=== PATIENT | male | born 1955 | race Native Hawaiian/Other Pacific Islander ===

== ENCOUNTER 2021-10-23 07:42 | Outpatient (REF) | payer OTHER, SELFPAY ==
[2021-10-23 08:10] LABS: MANUAL DIFF FLAG NO
[2021-10-23 08:39] LABS: Basophils Percent Auto 0.5 % (0-2); Eosinophils Absolute Auto 0.4 X10*3/uL (0.0-0.4); Eosinophils Percent Auto 5.2 % (0-4); Hematocrit 44.4 % (42.0-52.0); Hemoglobin 15.1 g/dl (14.0-18.0); Imm Gran Abs Auto 0.02 X10*3/uL (0.00-0.03); Imm Gran Pct Auto 0.3 % (0.0-0.4); Lymphocytes Absolute Auto 2.5 X10*3/uL (1.2-4.9); Lymphocytes Percent Auto 33.7 % (20-40); Mean Corpuscular Hemoglobin 32.7 pg (27.0-33.0); Mean Corpuscular Volume 96.1 fL (80.0-98.0); Mean Platelet Volume 10.5 fL (9.4-12.4); Monocytes Absolute Auto 0.6 X10*3/uL (0.1-1.2); Monocytes Percent Auto 8.3 % (2-11); Neutrophils Absolute Auto 3.9 x10*3/uL (2.0-8.3); Platelet Count 158 X10*3/uL (160-400); Red Blood Count 4.62 X10*6/uL (4.60-5.80); Red Cell Distribution Width 12.4 % (11.0-16.0); White Blood Count 7.5 X10*3/uL (4.8-10.8)
[2021-10-23 09:05] LABS: Alanine Aminotransferase 22 U/L (0-40); Alkaline Phosphatase 67 U/L (39-117); Anion Gap 12 (12-20); Aspartate Amino Transferase 28 U/L (5-37); Bilirubin Total 1.1 mg/dL (0.0-1.0); Blood Urea Nitrogen 13 mg/dL (9-16); Calcium 9.5 mg/dL (8.4-10.2); Carbon Dioxide 28 mmol/L (22-29); Chloride 104 mmol/L (96-108); Cholesterol 128 mg/dL; Estimated Glomerular Filt Rate > 60; Glucose Fasting 104 mg/dL (60-99); HDL Cholesterol 49 mg/dL; LDL Cholesterol Calculated 69 mg/dl; Potassium 4.4 mmol/L (3.3-5.1); Sodium 140 mmol/L (135-145); Triglycerides 54 mg/dL
== END 2021-10-23 07:43 | disposition home or self-care (01) ==
LOC: HO.LAB 07:42
PROVIDERS: PCP Internal Medicine; Visit Provider Internal Medicine
DX: I10 Essential (primary) hypertension (principal); E78.00 Pure hypercholesterolemia, unspecified; I25.10 Atherosclerotic heart disease of native coronary artery without angina pectoris; Z79.899 Other long term (current) drug therapy; Z95.5 Presence of coronary angioplasty implant and graft
CPT/HCPCS: 36415; 80053; 80061; 85025; 93005

== ENCOUNTER → 2022-01-22 08:13 | Outpatient (REF) | payer OTHER, SELFPAY ==
--- NOTE | 2022-01-22 08:18 | CA_ITS ---
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 Study Quality: Good ECG Rhythm: Bradycardia Conclusions: - 1. Normal LV systolic and diastolic function with possible basal inferior wall motion abnormality 2. Moderately dilated ascending aorta at 4.5 cm 3. Hedp-ty-bkvbxcen aortic regurgitation 4. Normal RV systolic pressure 5. No gross pericardial effusion Findings Left Ventricle Normal left ventricular size, thickness, and systolic function. The visually estimated ejection fraction is between 55-60%. Spectral Doppler is indicative of a normal filling pattern. Peak GLS is -18.2%, within normal limits Wall Motion Rest Echo Findings The basal inferior segment is hypokinetic. All other scored wall segments showed normal motion. Right Ventricle Normal right ventricular cavity size and systolic function. Atria The left atrium is likely dilated. There is no evidence of interatrial shunt. The right atrium is normal in size. Aortic Valve There is mild calcification of the aortic valve. There is mild thickening of the aortic valve. There is no aortic valve stenosis. There is mild to moderate aortic valve regurgitation. Mitral Valve Normal mitral valve structure and function. There is mild mitral valve regurgitation. There is no mitral valve stenosis. Pulmonic Valve The pulmonic valve is likely normal. There is trace to mild pulmonic valve regurgitation. Tricuspid Valve There is mild tricuspid valve regurgitation. The right ventricular systolic pressure is normal. The right ventricular systolic pressure is 22 mmHg. Normal right atrial pressure. There is no evidence of pulmonary hypertension. Great Vessels The pulmonary artery was not well visualized. There is moderate dilatation of the ascending aorta measuring 4.50 cm. Venous The inferior vena cava is normal in size and collapses greater than 50% with inspiration. Pericardium/Pleural There is no evidence of pericardial effusion. Prior Study Comparison No prior study available for comparison. Measurements 2D Linear Measurements IVSd: 1.07 0.6-0.9/0.6-1.0 cm LVIDd: 5.24 3.9-5.3/4.2-5.9 cm LVIDd Index: 2.86 2.4-3.2/2.2-3.1 cm/m2 LVIDs: 4.00 2.0-3.6 cm LVPWd: 0.83 0.7-1.1 cm Ao Root: 3.60 2.1-3.5 cm LA Diam: 4.10 2.7-3.8/3.0-4.0 cm LAIDs Index: 2.24 1.5-2.3 cm/m2 LV Mass: 228.92 67-162/88-224 g LV Mass Index: 125.09 43-95/49-115 g/m2 LVOT Diam: 2.40 3.0+(-)1.3 cm 2D Systolic Function EF 4C: 43.50 >55% EF 2C: 58.90 >55% Mitral Valve MV Pk E: 0.75 MV PK A: 0.50 MV Decel Time: 142.00 E/A: 1.50 E'Lateral: 11.10 E'Medial: 5.55 E/E' Med: 13.50 E/E' Lat: 6.70 PHT: 42.00 MVA PHT: 5.24 Decel [place]: 5.26 Aortic Valve AoV Pk Wero: 1.61 AoV Mn Wero: 1.07 AoV VTI: 0.33 AoV Pk Grad: 10.00 Aov Mn Grad: 5.00 CON Cont.VTI: 3.23 AI Pk Wero: 4.37 AI [place]: 2.03 LVOT LVOT Pk Wero: 1.02 LVOT Mn Wero: 0.72 LVOT VTI: 0.24 LVOT Pk Grad: 4.00 LVOT Mn Grad: 2.00 LVOT Diam: 2.40 LVOT Area: 4.52 Diastolic Function MV Pk E: 0.75 MV Pk A: 0.50 E/A: 1.50 E'Medial: 5.55 E/E' Med: 13.50 E' Laterial: 11.10 E/E' Lat: 6.70 Right Ventricle TAPSE (mm): 16.60 TVS' Wero: 10.20 Tricuspid Valve TR Pk Wero: 2.19 TR Pk Grad: 19.00 RA Press: 3.00 RVSP: 22.00 Great Vessels Aorta Ao Root-2D: 3.60 2.0-3.7 cm Sinus of Valsalva: 3.60 2.0-3.5 cm Ao Asc: 4.50 2.1-3.4 cm Ao Arch: 2.70 Pulmonary Valve PV Pk Wero: 0.81 Peak PV Grad: 3.00 Updated in Other Vendor System with Status of Final Harman Cole MD electronically signed on 01/23/2022 8:37:50 AM with status of Final
== END ==
LOC: HO.CARD 08:13
PROVIDERS: PCP Internal Medicine; Visit Provider Internal Medicine
DX: I25.10 Atherosclerotic heart disease of native coronary artery without angina pectoris (principal)
CPT/HCPCS: 93306; 93356

== ENCOUNTER → 2022-03-05 10:47 | Outpatient (REF) | payer OTHER, SELFPAY ==
[2022-03-05 11:51] LABS: HIV AB/AG Nonreactive (Nonreactive); HIV Num 1 0.08 S/CO (0.00-0.99)
[2022-03-05 11:53] LABS: Syphilis Screen Nonreactive (Nonreactive)
[2022-03-05 12:57] LABS: Prostate Specific Antigen 4.64 ng/mL (<0.05-4.0)
== END ==
LOC: HO.CARD 10:47
PROVIDERS: Absent Provider Internal Medicine; PCP Internal Medicine; Visit Provider Internal Medicine
DX: Z12.5 Encounter for screening for malignant neoplasm of prostate (principal); Z11.4 Encounter for screening for human immunodeficiency virus [HIV]; N40.0 Benign prostatic hyperplasia without lower urinary tract symptoms; I11.0 Hypertensive heart disease with heart failure; I25.10 Atherosclerotic heart disease of native coronary artery without angina pectoris
CPT/HCPCS: 36415; 84153; 86780; 87389

== ENCOUNTER 2022-04-09 08:43 | Outpatient (REF) | payer OTHER, SELFPAY ==
[2022-04-09 10:20] LABS: Prostate Specific Antigen 4.59 ng/mL (<0.05-4.0)
== END 2022-04-09 08:44 | disposition home or self-care (01) ==
LOC: HO.LAB 08:43
PROVIDERS: PCP Internal Medicine; Visit Provider Internal Medicine
DX: Z12.5 Encounter for screening for malignant neoplasm of prostate (principal); R97.20 Elevated prostate specific antigen [PSA]
CPT/HCPCS: 36415; 84153

== ENCOUNTER → 2022-04-30 08:06 | Outpatient (REF) | payer OTHER, SELFPAY ==
--- NOTE | ~2022-04-30 | NM_ITS ---
EXERCISE MYOCARDIAL PERFUSION STUDY INDICATION: Coronary artery disease, assess for ischemia TECHNIQUE: The patient was brought in for an exercise perfusion study on 04/30/2022. Patient performed exercise as per Paul protocol and was injected 25 mCi of sestamibi once target heart rate was achieved. Images were obtained using the SPECT gamma camera interlaced with the gating device. Images were obtained in supine position. Resting perfusion study was performed on 05/07/2022. Patient was administered 25 mCi of sestamibi intravenously at rest. Images were then obtained in supine position. Total DLP 63mg/dl. Images were processed with the software and compared side to side in short axis, horizontal long axis and vertical long axis views. FINDINGS: Raw images were reviewed. The stress perfusion study showed diminished tracer uptake in the basal part of inferior/inferolateral wall; no significant change with CT attenuation correction. The gated study shows mildly diminished LV systolic function with calculated LVEF of 46%. LV cavity is normal in size. The gated study shows diminished contractility in the basal part of inferior/inferolateral/lateral wall. Resting study shows improved uptake in the basal inferior wall compared to stress acquisition. Gating at rest reveals ejection fraction 55%. There is contractility in the basal part of inferior/inferolateral/lateral wall. The findings are consistent with reversible/fixed perfusion defect in the basal part of inferior/inferolateral/adjacent lateral wall. NM/NM cardiolite stress test IMPRESSION: 1. Myocardial perfusion imaging study shows mixed ischemia/infarct pattern in the basal inferior/adjacent inferolateral/lateral wall. 2. Gated LVEF is 48% during stress and 55% during rest. Correlate with echocardiogram. 3. Transient ischemic dilatation not present. EKG component of the test reported separately.
--- NOTE | 2022-04-30 08:10 | CA_ITS ---
Acquisition Time: 2022-04-30 08:13:58 Total Exercise Time: 00:07:30 Test Indications: CAD, AK STENT Medications: SEE CHART Protocol: ALICIA Max HR: 164 BPM 105% of Pred: 156 BPM Max BP: 164/080 mmHG Max Work Load: 9.3 METS Exercise stress test with exercise 7 min 30 sec of Alicia protocol, achieving 105% MPHR, 9 METs, with mild sob, no chest discomfort, with isolated PACs and PVCs, with normotensive response to exercise, with Baseline EKG shgowing ST/T wave abnormality in lateral leads which does not change significantly with exercise, overall nondiagnostic to determine ischemia. Treadmill was stopped due to max heart rate acheived. Nuclear images pending. Test reviewed with Dr Eli. Referred By: Ashish Montero Overread By: JUAN LI
== END ==
LOC: HO.CARD 08:06
PROVIDERS: PCP Internal Medicine; Visit Provider Internal Medicine
DX: I25.10 Atherosclerotic heart disease of native coronary artery without angina pectoris (principal)
CPT/HCPCS: 78452; 93017; A9500

== ENCOUNTER → 2022-12-31 13:24 | Outpatient (BNVA) | payer OTHER, SELFPAY | PROVIDERS: PCP Internal Medicine; Referring Provider Internal Medicine; Visit Provider Internal Medicine | DX: I25.10 Atherosclerotic heart disease of native coronary artery without angina pectoris (principal); I10 Essential (primary) hypertension | CPT/HCPCS: 93005 ==

== ENCOUNTER → 2023-02-20 07:44 | Outpatient (REF) | payer OTHER, SELFPAY | LOC: HO.CARD 07:44 | PROVIDERS: PCP Internal Medicine; Visit Provider Internal Medicine | DX: I77.810 Thoracic aortic ectasia (principal) | CPT/HCPCS: 93306 ==

== ENCOUNTER 2023-06-01 13:33 | Outpatient (REF) | payer OTHER, SELFPAY ==
[2023-06-01 14:32] LABS: Anion Gap 15 (12-20); Blood Urea Nitrogen 16 mg/dL (9-16); Calcium 9.6 mg/dL (8.4-10.2); Carbon Dioxide 26 mmol/L (22-29); Chloride 103 mmol/L (96-108); Estimated Glomerular Filt Rate > 60; Glucose Random 101 mg/dL (60-115); Potassium 4.9 mmol/L (3.3-5.1); Sodium 139 mmol/L (135-145)
== END 2023-06-01 13:34 | disposition home or self-care (01) ==
LOC: HO.LAB 13:33
PROVIDERS: PCP Internal Medicine; Visit Provider Internal Medicine
DX: I77.810 Thoracic aortic ectasia (principal)
CPT/HCPCS: 36415; 80048

== ENCOUNTER 2023-06-03 07:39 | Outpatient (REF) | payer OTHER, SELFPAY ==
--- NOTE | ~2023-06-03 | CT_ITS ---
EXAMINATION: CTA OF THE CHEST WITHOUT AND WITH CONTRAST CLINICAL INFORMATION: Thoracic aortic ectasia. COMPARISON: None TECHNIQUE: CT angiography of the chest was performed without and with contrast. 70 mL Omnipaque 350 administered intravenously without complication. 3D POSTPROCESSING: Multiple 3-D angiographic images were processed from the initial data set by the [facility] on an independent workstation under concurrent physician supervision. DOSE LOWERING TECHNIQUES: This CT examination was performed using dose optimization techniques as appropriate, variously including the following: - Automated exposure control - Adjustment of mA and/or kV according to patient size (this includes techniques or standardized protocols for targeted exams where dose is matched to indication/reason for exam; i.e. extremities or head) - Use of iterative construction technique DOSE-LENGTH PRODUCT: 137.16 mGy-cm FINDINGS: CORONARY ARTERIES: LM, LAD, diagonal, LCx, RCA calcium. ASCENDING AORTA: The aortic sinuses measure 4.5 x 4.2 cm. The sinotubular junction measures 3.9 x 3.4 cm. The mid segment measures 4.5 x 4.5 cm. The distal segment measures 3.7 x 3.6 cm. AORTIC ARCH: The mid aortic arch measures 2.9 x 2.6 cm. Three-vessel arch anatomy. Mild atherosclerosis. DESCENDING AORTA: The proximal segment measures 3.0 x 2.8 cm. The distal segment measures 2.6 x 2.3 cm. INCLUDED UPPER ABDOMINAL AORTA: The upper abdominal aorta measures 2.5 x 2.3 cm. The included celiac and superior mesenteric artery origins appear patent. PULMONARY ARTERIES: The exam was performed in the systemic arterial phase and not timed to evaluate the pulmonary arteries. NONVASCULAR: Arterial phase imaging limits evaluation of nonvascular structures. LUNG: Biapical pleural parenchymal scarring. Peribronchial thickening consistent with airways disease. Groundglass nodule in the anterior right upper lobe best appreciated on sagittal imaging measures 2.2 x 1.7 x 1.8 cm. On axial imaging this has a more wedge-shaped appearance and it may represent scarring and frictional change related to overlying sternocostal spurring. PLEURA: No pleural effusion or pneumothorax. MEDIASTINUM: No adenopathy. No pericardial effusion. CHEST WALL/AXILLA: No axillary or internal mammary lymphadenopathy. OSSEOUS STRUCTURES: Degenerative changes in the spine. UPPER ABDOMEN: Unremarkable. CT/CT angio chest aorta IMPRESSION: Ascending aortic aneurysm measuring 4.5 cm. Significant coronary artery calcium. Groundglass nodule in the anterior right upper lobe best appreciated on sagittal imaging measures 2.2 x 1.7 x 1.8 cm. On axial imaging this has a more wedge-shaped appearance and it may represent scarring and frictional change related to overlying sternocostal spurring. Per Fleischner Society Guidelines recommend a non-contrast Chest CT at 6 months to confirm persistence, then additional non-contrast Chest CTs every 2 years until 5 years. Fleischner guidelines were followed.
== END 2023-06-03 07:40 | disposition home or self-care (01) ==
LOC: HO.CT 07:39
PROVIDERS: PCP Internal Medicine; Visit Provider Internal Medicine
DX: I77.810 Thoracic aortic ectasia (principal)
CPT/HCPCS: 71275; Q9967

== ENCOUNTER 2023-11-16 08:40 | Outpatient (REF) | payer OTHER, SELFPAY ==
[2023-11-16 08:53] LABS: MANUAL DIFF FLAG NO
[2023-11-16 09:21] LABS: Basophils Absolute Auto 0.1 X10*3/uL (0.0-0.2); Basophils Percent Auto 0.9 % (0-2); Eosinophils Absolute Auto 0.3 X10*3/uL (0.0-0.4); Eosinophils Percent Auto 5.3 % (0-4); Hematocrit 43.6 % (42.0-52.0); Hemoglobin 14.7 g/dl (14.0-18.0); Imm Gran Abs Auto 0.02 X10*3/uL (0.00-0.03); Imm Gran Pct Auto 0.4 % (0.0-0.4); Lymphocytes Absolute Auto 2.6 X10*3/uL (1.2-4.9); Lymphocytes Percent Auto 47.1 % (20-40); Mean Corpuscular HGB Conc 33.7 g/dl (31.0-36.0); Mean Corpuscular Hemoglobin 31.6 pg (27.0-33.0); Mean Corpuscular Volume 93.8 fL (80.0-98.0); Mean Platelet Volume 10.8 fL (9.4-12.4); Monocytes Absolute Auto 0.5 X10*3/uL (0.1-1.2); Monocytes Percent Auto 9.4 % (2-11); Neutrophils Absolute Auto 2.1 x10*3/uL (2.0-8.3); Neutrophils Percent Auto 36.9 % (45-73); Platelet Count 147 X10*3/uL (160-400); Red Blood Count 4.65 X10*6/uL (4.60-5.80); Red Cell Distribution Width 12.8 % (11.0-16.0); White Blood Count 5.6 X10*3/uL (4.8-10.8)
[2023-11-16 09:57] LABS: Alanine Aminotransferase 27 U/L (0-40); Albumin Level 3.9 g/dL (3.5-5.0); Alkaline Phosphatase 88 U/L (39-117); Anion Gap 10 (12-20); Aspartate Amino Transferase 25 U/L (5-37); Bilirubin Total 0.6 mg/dL (0.0-1.0); Blood Urea Nitrogen 14 mg/dL (9-16); Calcium 9.2 mg/dL (8.4-10.2); Carbon Dioxide 28 mmol/L (22-29); Chloride 105 mmol/L (96-108); Cholesterol 128 mg/dL (<200); Estimated Glomerular Filt Rate > 60; Glucose Fasting 108 mg/dL (60-99); HDL Cholesterol 55 mg/dL (>40); LDL Cholesterol Calculated 64 mg/dL (<100); Potassium 4.1 mmol/L (3.3-5.1); Sodium 139 mmol/L (135-145); Total Protein 6.9 g/dL (6.5-8.0); Triglycerides 49 mg/dL (<150)
== END 2023-11-16 08:41 | disposition home or self-care (01) ==
LOC: HO.LAB 08:40
PROVIDERS: PCP Internal Medicine; Visit Provider Internal Medicine
DX: I25.10 Atherosclerotic heart disease of native coronary artery without angina pectoris (principal); I10 Essential (primary) hypertension; E78.00 Pure hypercholesterolemia, unspecified
CPT/HCPCS: 36415; 80053; 80061; 85025

== ENCOUNTER 2023-12-31 08:56 | Outpatient (AMB) | payer OTHER, SELFPAY ==
--- NOTE | 2023-12-31 09:05 | A.OFFVIS_ITS ---
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 To recall, while living in [place] many years ago he underwent PCI for acute myocardial infarction. Then moved to [place] and then to [place]. Overall, he is extremely active. 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 Still extremely active with no limitations whatsoever. On meds for hypertension and dyslipidemia. Since last seen, no new complaints. No angina or shortness of breath or in fact anything of that nature. [facility] [place] Medical History (Updated 06/11/22 @ 12:41 by Ashish Montero MD) Myocardial infarction Atherosclerotic cardiovascular disease Surgical History Stented coronary artery Family History Father No problems noted. Mother No problems noted. Social History Alcohol intake: never Patient Tobacco Use Status: Never used Tobacco Review of Systems Const Denies chills, Denies fatigue, Denies fever(s), Denies frequent falls, Denies weakness, Denies weight gain and Denies weight loss ENT Denies dizziness Card Denies chest pain, Denies leg edema, Denies lightheadedness, Denies palpitations, Denies dyspnea and Denies dyspnea on exertion Resp Denies cough, Denies dyspnea and Denies dyspnea on exertion GI Denies hematochezia Musc Denies abnormal gait, Denies muscle weakness, Denies numbness, Denies radiating pain into limb and Denies tingling Neuro Denies abnormal gait, Denies dizziness, Denies frequent falls, Denies numbness, Denies tingling and Denies weakness Endo Denies fatigue and Denies palpitations Physical Exam Vital Signs: Last Vital Signs Pulse 65 12/31/23 09:06 BP 120/68 12/31/23 09:06 BMI result Body Mass Index 22.6 Const General: comfortable and no acute distress Orientation/consciousness: patient oriented x3 HEENT Other: Unremarkable Head: Yes normal to inspection Neck Neck: Yes normal visual inspection Chest Chest palpation & inspection: normal inspection of the chest Resp Auscultation: clear to auscultation bilaterally Cardio Palpation: normal PMI Heart sounds: S1 normal heart sound present, S2 normal heart sound present, no gallops, no murmurs and no rubs GI Palpation (GI): Soft to palpation Back/Spine/Pelvis Other: unremarkable Skin General skin exam: no rashes or lesions noted Neuro General: patient oriented x3 Extrem General: Yes normal to inspection Psych Mental Status: mental status grossly normal Office Procedures EKG Details: EKG with sinus rhythm at 65/Min; CT prolongation to 212 millisecond; left ventricular hypertrophy with some repolarization changes. [id number], Complete Assessment & Plan Assessment & Plan (1) Atherosclerotic cardiovascular disease: Code(s): I25.10 - Atherosclerotic heart disease of [place] coronary artery without angina pectoris Category: Medical (2) Essential hypertension: Code(s): I10 - Essential (primary) hypertension Category: Medical (3) Ascending aorta dilatation: Code(s): I77.810 - Thoracic aortic ectasia Category: Medical Plan Cardiac catheterization -2009. s/p PCI to circumflex; right coronary artery; 1st diagonal branch. Widely patent left main. At that time, ventriculogram had akinesis of the proximal inferior wall. Overall, seems to be completely revascularized. Exercise stress echocardiogram from 2015 in [place]- unremarkable resting study; after exercise, slight hypokinesis in the basal lateral wall. Echocardiogram from January 2023 - LVEF of 55-60% with basal inferior hypokinesis. There was also finding of bagp-ko-vdioekwr aortic regurgitation. Ascending aortic size described at 4.5 cm. Myocardial perfusion imaging 2021- mixed ischemia/infarct pattern in the basal inferior/inferolateral/lateral wall. Chest CTA 2022-ascending aortic aneurysm, 4.5 cm. Overall, stable coronary disease with no symptoms. May remain on dual antiplatelet therapy. In the past, has had GI bleeding from [place] and had taken PPIs. Blood pressure is stable on losartan. Last LDL 64 mg/dL. Triglycerides 49 mg/dL. We will check an echocardiogram for ascending aortic size. Orders: Orders CA echo transthoracic complete Today I77.810 - Thoracic aortic ectasia Coding Level of Care Code Est Pt Level 4 (66840) Diagnoses Atherosclerotic cardiovascular disease I25.10 Essential hypertension I10 Ascending aorta dilatation I77.810 CPT Codes EKG - CPT: 96353-[id number], Complete ([id number])
[2023-12-31 09:06] VITALS: BP 120/68; PULSE 65; BMI 22.6
== END 2023-12-31 09:22 | disposition home or self-care (01) ==
PROVIDERS: PCP Internal Medicine; Visit Provider Internal Medicine
DX: I25.10 Atherosclerotic heart disease of native coronary artery without angina pectoris (principal); I10 Essential (primary) hypertension; I77.810 Thoracic aortic ectasia
CPT/HCPCS: 93010; 99214

== ENCOUNTER → 2023-12-31 08:56 | Outpatient (BNVA) | payer OTHER, SELFPAY | PROVIDERS: PCP Internal Medicine; Visit Provider Internal Medicine | DX: I25.10 Atherosclerotic heart disease of native coronary artery without angina pectoris (principal); I10 Essential (primary) hypertension; I77.810 Thoracic aortic ectasia; I25.2 Old myocardial infarction; Z95.5 Presence of coronary angioplasty implant and graft | CPT/HCPCS: 93005 ==

== ENCOUNTER → 2024-01-27 12:46 | Outpatient (REF) | payer OTHER, SELFPAY ==
--- NOTE | 2024-01-27 12:54 | CA_ITS ---
Transthoracic Echocardiogram Patient (Last, First, Middle): Jeovany Viera B Gender: Male Date of : 1955 Age: 68 Procedure Date: 01/27/2024 Procedure Type: Transthoracic Echocardiogram Location: OP Height: 177.8 cm Weight: 67.59 kg BSA: 1.84 m2 Heart Rate: bpm BP: 116 / 60 mmHg Assistant Director Of Public Works: Referring MD: Ashish Montero MD Field Agronomist: Harman Cole MD Symptoms: I77.810 - Thoracic aortic ectasia Study Quality: Adequate ECG Rhythm: Sinus Conclusions: - 1. Low normal LV ejection fraction of 50-55% with impaired relaxation filling pattern 2. Mildly dilated left atrium 3. Llhd-bh-jiysnvls aortic regurgitation and mild mitral regurgitation 4. Moderately dilated ascending aorta up to 4.6 cm 5. No pericardial effusion Findings Left Ventricle Normal left ventricular cavity size. There is mildly increased left ventricular wall thickness. The left ventricular systolic function is low normal. The visually estimated ejection fraction is between 50-55%. Spectral Doppler is indicative of an impaired relaxation filling pattern. E/E prime ratio is between 8 and 15 consistent with indeterminate filling pressures. Wall Motion Rest Echo Findings The basal inferior and basal inferoseptal segments are akinetic. All other scored wall segments showed normal motion. Right Ventricle Normal right ventricular cavity size and systolic function. Atria The left atrium is mildly dilated. There is no evidence of interatrial shunt. The right atrium is normal in size. Aortic Valve Normal aortic valve structure and function. There is no aortic valve stenosis. There is mild to moderate aortic valve regurgitation. Mitral Valve Normal mitral valve structure and function. There is mild mitral valve regurgitation. There is no mitral valve stenosis. Pulmonic Valve The pulmonic valve is likely normal. Tricuspid Valve Normal tricuspid valve structure. Tricuspid regurgitation envelope is inadequate for calculation of right ventricular systolic pressure. Normal right atrial pressure. Great Vessels The pulmonary artery was not well visualized. There is moderate dilatation of the ascending aorta measuring 4.60 cm. Venous The inferior vena cava is normal in size and collapses greater than 50% with inspiration. Pericardium/Pleural There is no evidence of pericardial effusion. Prior Study Comparison No significant change compared to prior study dated: 02/20/2023. Measurements 2D Linear Measurements IVSd: 1.23 0.6-0.9/0.6-1.0 cm LVIDd: 4.70 3.9-5.3/4.2-5.9 cm LVIDd Index: 2.55 2.4-3.2/2.2-3.1 cm/m2 LVIDs: 3.24 2.0-3.6 cm LVPWd: 1.21 0.7-1.1 cm Ao Root: 3.90 2.1-3.5 cm LA Diam: 3.80 2.7-3.8/3.0-4.0 cm LAIDs Index: 2.07 1.5-2.3 cm/m2 LV Mass: 270.58 67-162/88-224 g LV Mass Index: 147.05 43-95/49-115 g/m2 LVOT Diam: 2.10 3.0+(-)1.3 cm 2D Systolic Function EF 4C: 45.60 >55% EF 2C: 58.10 >55% EF BiP: 51.90 >55% Mitral Valve MV VTI: 0.31 MV Pk Wero: 0.82 MV Mn Wero: 0.43 MV Pk Grad: 3.00 MV Mn Grad: 1.00 MV Pk E: 0.71 MV PK A: 0.89 MV Decel Time: 208.00 E/A: 0.80 E'Lateral: 9.03 E'Medial: 4.90 E/E' Med: 14.50 E/E' Lat: 7.90 PHT: 61.00 MVA PHT: 3.61 MVA Continuity: 2.56 Decel [place]: 3.41 Aortic Valve AoV Pk Wero: 1.68 AoV Mn Wero: 1.05 AoV VTI: 0.38 AoV Pk Grad: 11.00 Aov Mn Grad: 6.00 CON Cont.VTI: 2.10 AI Pk Wero: 4.37 AI [place]: 1.95 LVOT LVOT Pk Wero: 0.88 LVOT Mn Wero: 0.54 LVOT VTI: 0.23 LVOT Pk Grad: 3.00 LVOT Mn Grad: 1.00 LVOT Diam: 2.10 LVOT Area: 3.46 Diastolic Function MV Pk E: 0.71 MV Pk A: 0.89 E/A: 0.80 E'Medial: 4.90 E/E' Med: 14.50 E' Laterial: 9.03 E/E' Lat: 7.90 Right Ventricle TAPSE (mm): 21.30 TVS' Wero: 12.10 Tricuspid Valve TR Pk Wero: 2.26 TR Pk Grad: 20.00 Great Vessels Aorta Ao Root-2D: 3.90 2.0-3.7 cm Ao Asc: 4.60 2.1-3.4 cm Pulmonary Valve PV Pk Wero: 0.79 Peak PV Grad: 3.00 Updated in Other Vendor System with Status of Final Harman Cole MD electronically signed on 01/28/2024 12:15:31 PM with status of Final
== END ==
LOC: HO.CARD 12:46
PROVIDERS: PCP Internal Medicine; Visit Provider Internal Medicine
DX: I77.810 Thoracic aortic ectasia (principal)
CPT/HCPCS: 93306

== ENCOUNTER → 2024-01-27 12:54 | Outpatient (BNV) | payer OTHER, SELFPAY | PROVIDERS: PCP Internal Medicine; Visit Provider Internal Medicine Cardiovascular Disease | DX: I35.1 Nonrheumatic aortic (valve) insufficiency (principal); I34.0 Nonrheumatic mitral (valve) insufficiency | CPT/HCPCS: 93306 ==

== ENCOUNTER 2024-03-11 12:09 | Outpatient (REF) | payer OTHER, SELFPAY ==
--- NOTE | ~2024-03-11 | US_ITS ---
EXAMINATION: US VENOUS ULTRASOUND WITH DOPPLER LOWER EXTREMITY, RIGHT CLINICAL INFORMATION: Right leg pain. COMPARISON: None available. TECHNIQUE: Ultrasound of the deep veins is performed from the hip to the calf with compression sonography and color and pulse Doppler assessment. Spectral analysis with color-flow imaging is performed. FINDINGS: There is normal venous compression and respiratory variation and augmented flow. The visualized common femoral vein, superficial femoral vein, profunda femoral vein, popliteal vein, and the trifurcation region shows no evidence of deep venous thrombosis. If the patient's symptoms persist, followup ultrasound in 5 days 7 days might be of value to exclude proximal propagation from a non-visualized calf vein. Incidental right groin lymph node measures 3.6 x 0.6 x 2.3 cm and is benign in appearance. US/US venous duplex LE RT IMPRESSION: No DVT demonstrated in the right lower extremity.
[2024-03-11 12:29] LABS: MANUAL DIFF FLAG NO
[2024-03-11 12:40] LABS: Mean Corpuscular HGB Conc 34.9 g/dl (31.0-36.0); Mean Corpuscular Hemoglobin 32.3 pg (27.0-33.0); Mean Corpuscular Volume 92.7 fL (80.0-98.0); Platelet Count 158 X10*3/uL (160-400); Red Blood Count 4.64 X10*6/uL (4.60-5.80); Red Cell Distribution Width 12.1 % (11.0-16.0); White Blood Count 7.8 X10*3/uL (4.8-10.8)
[2024-03-11 12:41] LABS: Basophils Percent Auto 0.4 % (0-2); Eosinophils Absolute Auto 0.2 X10*3/uL (0.0-0.4); Eosinophils Percent Auto 2.1 % (0-4); Imm Gran Abs Auto 0.02 X10*3/uL (0.00-0.03); Imm Gran Pct Auto 0.3 % (0.0-0.4); Lymphocytes Absolute Auto 1.4 X10*3/uL (1.2-4.9); Lymphocytes Percent Auto 17.7 % (20-40); Mean Platelet Volume 10.1 fL (9.4-12.4); Monocytes Absolute Auto 0.7 X10*3/uL (0.1-1.2); Monocytes Percent Auto 9.5 % (2-11); Neutrophils Absolute Auto 5.5 x10*3/uL (2.0-8.3)
[2024-03-11 13:23] LABS: Erythrocyte Sedimentation Rate 29 MM/HR (0-15)
[2024-03-11 21:25] LABS: Alanine Aminotransferase 23 U/L (0-40); Albumin Level 3.9 g/dL (3.5-5.0); Alkaline Phosphatase 55 U/L (39-117); Anion Gap 13 (12-20); Aspartate Amino Transferase 33 U/L (5-37); Bilirubin Total 0.9 mg/dL (0.0-1.0); Blood Urea Nitrogen 12 mg/dL (9-16); C Reactive Protein 8.23 mg/dL (< or = 0.50); Calcium 9.2 mg/dL (8.4-10.2); Carbon Dioxide 25 mmol/L (22-29); Chloride 104 mmol/L (96-108); Estimated Glomerular Filt Rate > 60; Glucose Random 136 mg/dL (60-115); Potassium 3.9 mmol/L (3.3-5.1); Sodium 138 mmol/L (135-145); Total Protein 7.3 g/dL (6.5-8.0)
== END 2024-03-11 12:10 | disposition home or self-care (01) ==
LOC: HO.US 12:09
PROVIDERS: PCP Internal Medicine; Visit Provider Internal Medicine
DX: I80.9 Phlebitis and thrombophlebitis of unspecified site (principal); M79.604 Pain in right leg
CPT/HCPCS: 36415; 80053; 85025; 85652; 86140; 93971

== ENCOUNTER 2024-04-06 16:33 | Outpatient (REF) | payer OTHER, SELFPAY ==
[2024-04-06 17:39] LABS: Anion Gap 11 (12-20); Blood Urea Nitrogen 14 mg/dL (9-16); C Reactive Protein 0.15 mg/dL (< or = 0.50); Calcium 8.8 mg/dL (8.4-10.2); Carbon Dioxide 26 mmol/L (22-29); Chloride 106 mmol/L (96-108); Estimated Glomerular Filt Rate > 60; Glucose Random 100 mg/dL (60-115); Potassium 4.8 mmol/L (3.3-5.1); Sodium 138 mmol/L (135-145)
[2024-04-06 17:46] LABS: Troponin-I High Sensitivity 5.2 ng/L (<3.5-35.0)
== END 2024-04-06 16:34 | disposition home or self-care (01) ==
LOC: HO.LAB 16:33
PROVIDERS: PCP Internal Medicine; Visit Provider Internal Medicine
DX: R00.2 Palpitations (principal); I25.10 Atherosclerotic heart disease of native coronary artery without angina pectoris
CPT/HCPCS: 36415; 80048; 82550; 84484; 86140

== ENCOUNTER 2024-04-07 14:04 | Outpatient (AMB) | payer OTHER, SELFPAY ==
[2024-04-07 14:08] VITALS: BP 96/50; PULSE 72; BMI 20.6
--- NOTE | 2024-04-07 14:08 | MHC.OFFVIS ---
Vital Signs 04/07/24 14:08 Height 5 ft 10 in Weight 143 lb 11.862 oz BMI 20.6 BP 96/50 L Blood Pressure Location Lt brachial Position Sitting Pulse 72 Pulse Source Pulse Oximeter Intake Visit Reasons: Croke referred -lightheaded/dizzy [employer] Required: No Accompanied by: Self / Same As Patient Allergies No Known Allergies Allergy (Verified 04/07/24 14:10) Medication List - Last Reconciled 04/07/24 by Ashish Montero MD aspirin 81 mg PO DAILY clopidogrel 75 mg PO DAILY losartan 50 mg PO DAILY rosuvastatin 20 mg PO DAILY HPI Comments Details: Jeovany returns for follow-up. To recall, while living in [place] many years ago he underwent PCI for acute myocardial infarction. Then moved to [place] and then to [place]. Overall, he is extremely active. 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 Still extremely active with no limitations whatsoever. On meds for hypertension and dyslipidemia. His PCP had asked for evaluation. Apparently, his legs were swollen up few days back and it was thought to be infection he got some antibiotics. For the last few days, he has also been somewhat dizzy when he is bending down extra. He was checked at his PCP's office when the blood pressure was 90s. Today it is also again in the 90s. He states he is not generally dizzy unless he bends down. He does not have any complaints like angina or shortness of breath. He is feeling very well otherwise. Also it seems that his labs were checked test today and the CK levels were found to be high. Again unclear reason. Troponins were unremarkable. [facility] Medical History (Updated 04/07/24 @ 14:28 by Ashish Montero MD) Myocardial infarction Atherosclerotic cardiovascular disease Surgical History Stented coronary artery Family History Father No problems noted. Mother No problems noted. Social History Alcohol intake: never Patient Tobacco Use Status: Never used Tobacco Review of Systems Const Denies chills, Denies fatigue, Denies fever(s), Denies weight gain and Denies weight loss ENT Denies dizziness Card Denies chest pain, Denies leg edema, Denies lightheadedness, Denies palpitations, Denies dyspnea on exertion, Denies orthopnea and Denies other Resp Denies cough and Denies dyspnea on exertion GI Denies hematochezia and Denies change in stool character Musc Denies abnormal gait, Denies muscle weakness, Denies numbness, Denies radiating pain into limb and Denies tingling Neuro Denies abnormal gait, Denies dizziness, Denies numbness and Denies tingling Endo Denies fatigue and Denies palpitations Physical Exam Vital Signs: Last Vital Signs Pulse 72 04/07/24 14:08 BP 96/50 L 04/07/24 14:08 BMI result Body Mass Index 20.6 Const General: comfortable and no acute distress Orientation/consciousness: patient oriented x3 HEENT Other: Unremarkable Head: Yes normal to inspection Neck Neck: Yes normal visual inspection Chest Chest palpation & inspection: normal inspection of the chest Resp Auscultation: clear to auscultation bilaterally Cardio Palpation: normal PMI Heart sounds: S1 normal heart sound present, S2 normal heart sound present, no gallops, no murmurs and no rubs GI Palpation (GI): Soft to palpation Back/Spine/Pelvis Other: unremarkable Skin General skin exam: no rashes or lesions noted Neuro General: patient oriented x3 Extrem Other: Trace edema, R>L. General: Yes normal to inspection Psych Mental Status: mental status grossly normal Assessment & Plan Assessment & Plan (1) Atherosclerotic cardiovascular disease: Code(s): I25.10 - Atherosclerotic heart disease of [place] coronary artery without angina pectoris Category: Medical (2) Essential hypertension: Code(s): I10 - Essential (primary) hypertension Category: Medical (3) Ascending aorta dilatation: Code(s): I77.810 - Thoracic aortic ectasia Category: Medical (4) Atrial arrhythmia: Code(s): I49.8 - Other specified cardiac arrhythmias Category: Medical Plan Cardiac data reviewed. EKG with underlying sinus rhythm with frequent PACs. LVH pattern. Cardiac catheterization -2009. s/p PCI to circumflex; right coronary artery; 1st diagonal branch. Widely patent left main. At that time, ventriculogram had akinesis of the proximal inferior wall. Overall, seems to be completely revascularized. Exercise stress echocardiogram from 2016 in [place]- unremarkable resting study; after exercise, slight hypokinesis in the basal lateral wall. Echocardiogram 02/11/2024-LVEF 50-55%; basal inferior/inferoseptal akinesis. [id number] aortic regurgitation and mild mitral regurgitation. Ascending aortic size 4.6 cm. Echocardiogram from January 2023 - LVEF of 55-60% with basal inferior hypokinesis. There was also finding of [id number] aortic regurgitation. Ascending aortic size described at 4.5 cm. Myocardial perfusion imaging 2021- mixed ischemia/infarct pattern in the basal inferior/inferolateral/lateral wall. Chest CTA 2022-ascending aortic aneurysm, 4.5 cm. Overall, mild orthostatic dizziness recently without any other symptoms. EKG showing atrial ectopy. Labs show elevated CKs but normal high sensitivity troponin. His CRP is normal. I highly doubt any acute coronary syndrome in this situation. He has got absolutely no symptoms like chest pains. We will recheck his CK and troponin today. We will also reassess his echocardiogram for wall motion findings. Holter monitor for the atrial arrhythmias. For low blood pressure, advised him to cut back on the losartan to half the dose. He can try 20 mg for the next few days. May remain on dual antiplatelet therapy. In the past, has had GI bleeding from Effient and had taken PPIs. Continue statins. Cholesterol is well controlled. We will see him back with the testing. In the interim, if any concerns like chest pain or other symptoms of that nature, would need ER evaluation and we discussed that today. Orders: Orders ECG 3 day holter monitor Today I49.8 - Other specified cardiac arrhythmias Troponin-I High Sensitivity Today I25.10 - Atherosclerotic heart disease of [place] coronary artery without angina pectoris CA echo transthoracic complete Today I25.10 - Atherosclerotic heart disease of [place] coronary artery without angina pectoris Creatine Kinase Total Today I25.10 - Atherosclerotic heart disease of [place] coronary artery without angina pectoris Coding Level of Care Code Est Pt Level 4 (12545) Diagnoses Atherosclerotic cardiovascular disease I25.10 Essential hypertension I10 Ascending aorta dilatation I77.810 Atrial arrhythmia I49.8
== END 2024-04-07 14:46 | disposition home or self-care (01) ==
PROVIDERS: PCP Internal Medicine; Visit Provider Internal Medicine
DX: I25.10 Atherosclerotic heart disease of native coronary artery without angina pectoris (principal); I10 Essential (primary) hypertension; I77.810 Thoracic aortic ectasia; I49.8 Other specified cardiac arrhythmias
CPT/HCPCS: 99214

== ENCOUNTER 2024-04-07 14:04 | Outpatient (REF) | payer OTHER, SELFPAY ==
[2024-04-07 16:46] LABS: Troponin-I High Sensitivity 4.4 ng/L (<3.5-35.0)
== END 2024-04-07 14:05 | disposition home or self-care (01) ==
LOC: HO.LAB 14:04
PROVIDERS: PCP Internal Medicine; Visit Provider Internal Medicine
DX: I25.10 Atherosclerotic heart disease of native coronary artery without angina pectoris (principal)
CPT/HCPCS: 36415; 82550; 84484

== ENCOUNTER → 2024-05-18 08:43 | Outpatient (REF) | payer OTHER, SELFPAY ==
--- NOTE | 2024-05-18 08:47 | CA_ITS ---
Transthoracic Echocardiogram Patient (Last, First, Middle): Jeovany Viera B Gender: Male Date of : 1955 Age: 68 Procedure Date: 05/18/2024 Procedure Type: Transthoracic Echocardiogram Location: OP Height: 177.8 cm Weight: 64.86 kg BSA: 1.81 m2 Heart Rate: bpm BP: 130 / 68 mmHg Bread Supervisor: TO Referring MD: Ashish Montero MD Symptoms: I25.10 - Atherosclerotic heart disease of [place] coronary artery without... Study Quality: Adequate Conclusions: - The left ventricular systolic function is mildly decreased. The visually estimated ejection fraction is between 40-45%. - There is evidence of regional wall motion abnormalities. - There is mild to moderate aortic valve regurgitation. - There is moderate dilatation of the ascending aorta measuring 4.70 cm. Findings Left Ventricle Normal left ventricular cavity size. There is normal left ventricular wall thickness. The left ventricular systolic function is mildly decreased. The visually estimated ejection fraction is between 40-45%. There is evidence of regional wall motion abnormalities. Evidence suggests grade I (mild) diastolic dysfunction. Wall Motion Rest Echo Findings The inferolateral wall and mid inferoseptal segment are hypokinetic. The basal inferior and basal inferoseptal segments are akinetic. Right Ventricle Normal right ventricular cavity size. There is low normal right ventricular systolic function. Atria The left atrium is moderately dilated. The right atrium is normal in size. Aortic Valve There is a normal trileaflet aortic valve. There is no aortic valve stenosis. There is mild to moderate aortic valve regurgitation. Mitral Valve The mitral valve appears normal. There is trace mitral valve regurgitation. There is no mitral valve stenosis. Pulmonic Valve There is trace pulmonic valve regurgitation. Tricuspid Valve There is trace tricuspid valve regurgitation. There is no evidence of pulmonary hypertension. Great Vessels The aortic arch is normal in size. There is moderate dilatation of the ascending aorta measuring 4.70 cm. Venous The inferior vena cava is normal in size and collapses greater than 50% with inspiration. Pericardium/Pleural There is no evidence of pericardial effusion. Prior Study Comparison Changes noted compared to prior study dated: 01/27/2024. LVEF slightly lower than prior study. Measurements 2D Linear Measurements IVSd: 1.07 0.6-0.9/0.6-1.0 cm LVIDd: 4.87 3.9-5.3/4.2-5.9 cm LVIDd Index: 2.69 2.4-3.2/2.2-3.1 cm/m2 LVIDs: 3.59 2.0-3.6 cm LVPWd: 0.92 0.7-1.1 cm LA Diam: 3.60 2.7-3.8/3.0-4.0 cm LAIDs Index: 1.99 1.5-2.3 cm/m2 LV Mass: 215.77 67-162/88-224 g LV Mass Index: 119.21 43-95/49-115 g/m2 LVOT Diam: 2.30 3.0+(-)1.3 cm 2D Systolic Function EF 4C: 36.30 >55% EF 2C: 42.80 >55% EF BiP: 41.00 >55% Mitral Valve E'Lateral: 8.49 E'Medial: 3.59 Aortic Valve AoV Pk Wero: 1.27 AoV Pk Grad: 6.00 AI Pk Wero: 4.44 AI [place]: 2.09 LVOT LVOT Pk Wero: 0.97 LVOT Mn Wero: 0.69 LVOT VTI: 0.22 LVOT Pk Grad: 4.00 LVOT Mn Grad: 2.00 LVOT Diam: 2.30 LVOT Area: 4.15 Diastolic Function E'Medial: 3.59 E' Laterial: 8.49 Right Ventricle TAPSE (mm): 17.30 TVS' Wero: 10.80 Tricuspid Valve TR Pk Wero: 1.77 TR Pk Grad: 13.00 RA Press: 3.00 RVSP: 16.00 Great Vessels Aorta Sinus of Valsalva: 3.81 2.0-3.5 cm Ao Asc: 4.70 2.1-3.4 cm Ao Arch: 2.70 Updated in Other Vendor System with Status of Final Ashish Montero MD electronically signed on 05/20/2024 1:51:03 PM with status of Final
--- NOTE | 2024-05-18 08:47 | HM_ITS ---
* Total monitoring time 3 days. * Underlying rhythm is sinus with an average ventricular rate of 69/Min. * Frequent supraventricular ectopy with a burden of 19%. * Rare ventricular ectopy with some couplets. * No significant pauses or high-grade AV blocks. * No patient markers or diary events. MTDD
== END ==
LOC: HO.CARD 08:43
PROVIDERS: PCP Internal Medicine; Visit Provider Internal Medicine
DX: I49.8 Other specified cardiac arrhythmias (principal); I25.10 Atherosclerotic heart disease of native coronary artery without angina pectoris; I49.1 Atrial premature depolarization; R00.2 Palpitations
CPT/HCPCS: 93242; 93306

== ENCOUNTER → 2024-05-18 08:47 | Outpatient (BNV) | payer OTHER, SELFPAY | PROVIDERS: PCP Internal Medicine; Visit Provider Internal Medicine | DX: I47.10 Supraventricular tachycardia, unspecified (principal) | CPT/HCPCS: 93244; 93306 ==

== ENCOUNTER 2024-05-25 08:24 | Outpatient (REF) | payer OTHER, SELFPAY ==
[2024-05-28 21:29] LABS: CK-BB 1 % (None Detected); CK-MB 3 % (<5); CK-MM 92 % (95-100); Creatine Kinase Isoenzyme Itrp MACRO CK TYPE 1; Creatine Kinase,Total,Serum 351 U/L (44-196)
== END 2024-05-25 08:25 | disposition home or self-care (01) ==
LOC: HO.LAB 08:24
PROVIDERS: PCP Internal Medicine; Visit Provider Internal Medicine
DX: G72.0 Drug-induced myopathy (principal); T46.6X5A Adverse effect of antihyperlipidemic and antiarteriosclerotic drugs, initial encounter
CPT/HCPCS: 36415; 82552

== ENCOUNTER 2024-05-25 08:24 | Outpatient (AMB) | payer OTHER, SELFPAY ==
[2024-05-25 08:38] VITALS: BP 90/60; PULSE 63; BMI 20.4
--- NOTE | 2024-05-25 08:38 | MHC.OFFVIS ---
Vital Signs 05/25/24 08:38 Height 5 ft 10 in Weight 142 lb 6.698 oz BMI 20.4 BP 90/60 Blood Pressure Location Lt brachial Position Sitting Pulse 63 Pulse Source Pulse Oximeter Intake Visit Reasons: F/U after testing Meter Reader Required: No Accompanied by: Self / Same As Patient Allergies No Known Allergies Allergy (Verified 04/07/24 14:10) Medication List - Last Reconciled 05/25/24 by Ashish Montero MD amlodipine 5 mg PO DAILY aspirin 81 mg PO DAILY clopidogrel 75 mg PO DAILY losartan 25 mg PO DAILY rosuvastatin 20 mg PO DAILY HPI Comments Details: Jeovany returns for follow-up. To recall, while living in [place] many years ago he underwent PCI for acute myocardial infarction. Then moved to [place] and then to [place]. Overall, he is extremely active. 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 Still extremely active with no limitations whatsoever. On meds for hypertension and dyslipidemia. Recently, legs swollen up and thought to be infection and he got antibiotics. Then some dizziness. Blood pressure was on the lower side and his losartan dose was cut back. Today blood pressure is still low but he states home blood pressures are back in the 120s. No other symptoms like angina or shortness of breath. He states he feels fine. [facility] Medical History (Updated 04/07/24 @ 14:28 by Ashish Montero MD) Myocardial infarction Atherosclerotic cardiovascular disease Surgical History Stented coronary artery Family History Father No problems noted. Mother No problems noted. Social History Alcohol intake: never Patient Tobacco Use Status: Never used Tobacco Review of Systems Const Denies chills, Denies fatigue, Denies fever(s), Denies frequent falls, Denies weakness, Denies weight gain and Denies weight loss ENT Denies dizziness Card Denies chest pain, Denies leg edema, Denies lightheadedness, Denies palpitations, Denies dyspnea and Denies dyspnea on exertion Resp Denies cough, Denies dyspnea and Denies dyspnea on exertion GI Denies hematochezia Musc Denies abnormal gait, Denies muscle weakness, Denies numbness, Denies radiating pain into limb and Denies tingling Neuro Denies abnormal gait, Denies dizziness, Denies frequent falls, Denies numbness, Denies tingling and Denies weakness Endo Denies fatigue and Denies palpitations Physical Exam Vital Signs: Last Vital Signs Pulse 63 05/25/24 08:38 BP 90/60 05/25/24 08:38 BMI result Body Mass Index 20.4 Const General: comfortable and no acute distress Orientation/consciousness: patient oriented x3 HEENT Other: Unremarkable Head: Yes normal to inspection Neck Neck: Yes normal visual inspection Chest Chest palpation & inspection: normal inspection of the chest Resp Auscultation: clear to auscultation bilaterally Cardio Palpation: normal PMI Heart sounds: S1 normal heart sound present, S2 normal heart sound present, no gallops, no murmurs and no rubs GI Palpation (GI): Soft to palpation Back/Spine/Pelvis Other: unremarkable Skin General skin exam: no rashes or lesions noted Neuro General: patient oriented x3 Extrem General: Yes normal to inspection Psych Mental Status: mental status grossly normal Assessment & Plan Assessment & Plan (1) Atherosclerotic cardiovascular disease: Code(s): I25.10 - Atherosclerotic heart disease of [place] coronary artery without angina pectoris Category: Medical (2) Essential hypertension: Code(s): I10 - Essential (primary) hypertension Category: Medical (3) Ascending aorta dilatation: Code(s): I77.810 - Thoracic aortic ectasia Category: Medical (4) Atrial arrhythmia: Code(s): I49.8 - Other specified cardiac arrhythmias Category: Medical Plan Cardiac data reviewed. EKG with underlying sinus rhythm with frequent PACs. LVH pattern. Cardiac catheterization -2009. s/p PCI to circumflex; right coronary artery; 1st diagonal branch. Widely patent left main. At that time, ventriculogram had akinesis of the proximal inferior wall. Overall, seems to be completely revascularized. Exercise stress echocardiogram from 2015 in [place]- unremarkable resting study; after exercise, slight hypokinesis in the basal lateral wall. Echocardiogram 04/2024-LVEF 40-45%; inferior wall motion abnormality similar to prior; [id number] aortic regurgitation with moderate ascending aortic dilatation at 4.7 cm. Myocardial perfusion imaging 2021- mixed ischemia/infarct pattern in the basal inferior/inferolateral/lateral wall. Chest CTA 2022-ascending aortic aneurysm, 4.5 cm. Overall, coronary disease, recent EKG with atrial ectopy, lowish blood pressures, slight elevation of CK but normal high sensitivity troponin. CRP was high but has normalized. Unclear if he had some leg infection that has improved since. His Holter is still pending and we will assess for any atrial arrhythmias once that is ready to review. With regard to blood pressure, he has losartan doses already cut back. He can also cut back on the amlodipine dose. With regard to the coronary disease, we can repeat a stress test as there is a slight decrease in LVEF compared to prior. Continue dual antiplatelet drugs. In the past, he has had GI bleeding from Effient and had taken PPI. Continue statins in the lipids are well controlled. Recheck CK. If any chest pains other symptoms, advised him to contact us immediately. We will see him in about 6 weeks' time. Orders: Orders CA stress test Today I25.10 - Atherosclerotic heart disease of [place] coronary artery without angina pectoris, R07.2 - Precordial pain NM cardiolite stress test Today I25.10 - Atherosclerotic heart disease of [place] coronary artery without angina pectoris, R07.2 - Precordial pain Coding Level of Care Code Est Pt Level 4 (77697) Diagnoses Atherosclerotic cardiovascular disease I25.10 Essential hypertension I10 Ascending aorta dilatation I77.810 Atrial arrhythmia I49.8
== END 2024-05-25 09:13 | disposition home or self-care (01) ==
PROVIDERS: PCP Internal Medicine; Visit Provider Internal Medicine
DX: I25.10 Atherosclerotic heart disease of native coronary artery without angina pectoris (principal); I10 Essential (primary) hypertension; I77.810 Thoracic aortic ectasia; I49.8 Other specified cardiac arrhythmias
CPT/HCPCS: 99214

== ENCOUNTER 2025-05-04 07:50 | Outpatient (AMB) | payer OTHER, SELFPAY ==
--- NOTE | 2025-05-04 07:54 | MHC.PC.OV ---
Vital Signs 05/04/25 08:00 Height 5 ft 10 in Weight 148 lb BMI 21.2 BP 122/64 Blood Pressure Location Lt brachial Position Sitting Respiration 17 Pulse 71 Pulse Source Pulse Oximeter Temp 98.6 F Temp Source Temporal Artery Scan Pulse Oximetry (%) 97 Oxygen Delivery Method Room Air Intake Visit Reasons: Routine f/u Carmela Pt Accounting Technician Required: No Accompanied by: Self / Same As Patient Allergies No Known Allergies Allergy (Verified 05/04/25 07:55) Tobacco use date assessed: 05/04/25 Fall risk assessment: No Falls in past year Last assessed Fall Risk: 05/04/25 Dental Screening Did you have a dental visit in the last 12 months?: Yes HPI HPI Comments History of Present Illness Details The patient is a 69-year-old male presenting for a comprehensive evaluation and monitoring of multiple chronic conditions. The patient reports a history of essential hypertension managed with amlodipine and losartan. The patient also has a history of coronary artery disease for which he underwent stent placement in 2009 and is on antiplatelet therapy with aspirin and clopidogrel (Plavix) for secondary prevention. He has hyperlipidemia controlled with suvastaStatin. Additionally, he has heart failure with moderately reduced ejection fraction, with a recent echocardiogram from April 2024 indicating an ejection fraction of 40-45%, indicating a decrease from normal levels. An ultrasound also revealed aortic dilation measuring 4.7 cm, necessitating regular monitoring. The patient is also on a pre-exposure prophylactic regimen for HIV, taking emtricitabine and tenofovir (Truvada) as an AIDS preventative, initially prescribed by a physician in [place] and continued by Dr. Coppola. The patient denies any current smoking or alcohol use but admits to occasional marijuana use. He occasionally runs marathons and reports general satisfaction with his physical condition despite senior living-related weight gain. Medical History: - Essential Hypertension - Coronary Artery Disease (s/p stent in 2009) - Hyperlipidemia - Heart Failure with Moderately Reduced Ejection Fraction - Aortic Dilation - HIV Exposure (on PrEP) Surgical History: - None reported Medications: - Amlodipine 5 mg for hypertension - Losartan 25 mg for hypertension - Aspirin for secondary prevention post-stent - Clopidogrel (Plavix) for secondary prevention post-stent - Suvastatin for hyperlipidemia - Emtricitabine/tenofovir (Truvada) for HIV prevention Family History: - Father with heart disease - Mother with diabetes - No family history of cancer reported Diagnostic Results: - Echocardiogram (April 2024): Ejection fraction 40-45% - Aortic dilation measured at 4.7 cm on ultrasound Social: - 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 Mother No problems noted. Social History Housing: House Alcohol intake: never Patient Tobacco Use Status: Former Tobacco user Tobacco use type: Cigarette e-Cigarette/Vaping Use: Never Used service: No Current occupational status: retired Questionnaire PHQ-9 Over the last 2 weeks, how often have you been bothered by any of the following problems? 1. Little interest or pleasure in doing things: not at all 2. Feeling down, depressed, or hopeless: not at all 3. Trouble falling or staying asleep, or sleeping too much: not at all 4. Feeling tired or having little energy: not at all 5. Poor appetite or overeating: not at all 6. Feeling bad about yourself - or that you are a failure or have let yourself or your family down: not at all 7. Trouble concentrating on things, such as reading the newspaper or watching television: not at all 8. Moving or speaking so slowly that other people could have noticed. Or the opposite - being so fidgety or restless that you have been moving around a lot more than usual: not at all 9. Thoughts that you would be better off or of hurting yourself in some way: not at all Total score: 0 Depression Screening Interpretation: Negative Depression Screening Done: Yes 29497 - PHQ-9 Billing: Yes Source: Developed by Drs. Jaleel Patel, Maria C Pulido, Yuan Nielsen and colleagues, with an educational ulisses from [employer]. Thrive Questionnaire Date Thrive assessed: 05/04/25 I am a: Patient What is your living situation today?: I have a steady place to live Within the past 12 months, did the food you bought not last and you didn't have the money to get more?: Never true Within the past 12 months, did you worry whether your food would run out before you got money to buy more?: Never true Do you have trouble paying for medicines?: No Do you have trouble getting transportation to medical appointments?: No Do you have trouble paying your heating and electricity bill?: No Do you have trouble taking care of your child, family member or friend?: No Do you have trouble with day-to-day activities such as bathing, preparing meals, shopping, managing finances, etc.?: No Are you currently unemployed and looking for a job?: No Are you interested in more education?: No THRIVE Score: 0 AUDIT C Alcohol Use Questionnaire (AUDIT-C) 1. How often do you have a drink containing alcohol?: Never 3. How often do you have six or more drinks on one occasion?: Never Total Score: 0 Score Reviewed/Action Taken: Yes SAMSON-7 AMB Questionnaire SAMSON-7 Date SAMSON - 7 assessed: 05/04/25 Feeling nervous, anxious, or on edge: 0 = Not at all Not being able to stop or control worryin = Not at all Worrying too much about different things: 0 = Not at all Trouble relaxin = Not at all Being so restless that it is hard to sit still: 0 = Not at all Becoming easily annoyed or irritable: 0 = Not at all Feeling afraid as if something awful might happen: 0 = Not at all Total SAMSON-7 score (0-4 normal; 5-9 mild; 10-14 moderate; 15-21 severe): 0 Source: Developed by Drs. Jaleel Patel, Maria C Pulido, Yuan Nielsen and colleagues, with an educational ulisses from [employer]. SAMSON-7 Assessment Billing SAMSON-7 Assessment Tool: SAMSON-7 Assessment 37920 Review of Systems Const Details: - General: Denies significant complaints, reports feeling well - Cardiovascular: Denies chest pain or palpitations - Respiratory: Denies shortness of breath - Gastrointestinal: Denies diarrhea or constipation - Musculoskeletal: Denies joint or muscle pain - Neurological: Denies headaches - Genitourinary: Reports normal urination All systems reviewed & are unremarkable except as reviewed in HPI and above Physical exam (Primary Care) Vital Signs: Last Vital Signs Temp 98.6 F 05/04/25 08:00 Pulse 71 05/04/25 08:00 Resp 17 05/04/25 08:00 BP 122/64 05/04/25 08:00 Pulse Ox 97 05/04/25 08:00 Oxygen Delivery Method Room Air 05/04/25 08:00 BMI result Body Mass Index 21.2 Tobacco/Smoking Status: Tobacco use Status Tobacco use date assessed 05/04/25 05/04/25 07:57 Patient Tobacco Use Status Former Tobacco user 05/04/25 08:00 Tobacco use type Cigarette 05/04/25 08:00 e-Cigarette/Vaping Use Never Used 05/04/25 08:00 Depression Screening Interpretation: Negative Const Other: General: +Alert and oriented, Well nourished, No acute distress. Eye: Pupils are equal, round and reactive to light, Intact accommodation, Extraocular movements are intact, Normal conjunctiva, Vision unchanged. HENT: Normocephalic, Atraumatic, Tympanic membranes are clear, Normal hearing, Oral mucosa is moist, No pharyngeal erythema, Ear canals patent. Respiratory: Lungs CTA bilaterally, No wheeze, Respirations are non-labored. Cardiovascular: Regular rate, Regular rhythm, S1 auscultated, S2 auscultated, No murmur, Good pulses equal in all extremities, Normal peripheral perfusion, No edema. Gastrointestinal: Soft, Non-tender, Non-distended, Normal bowel sounds, No organomegaly. Musculoskeletal: Normal range of motion, Normal strength, No tenderness, No swelling, No deformity, Normal gait. Integumentary: Warm, Dry, [place], Intact. Neurologic: Alert, Oriented, Normal sensory, Normal motor function, No focal defects, Cranial Nerves II-XII are grossly intact, Normal deep tendon reflexes. Psychiatric: Cooperative, Appropriate mood & affect, Normal judgment. Coding Level of Care Code New Pt Level 4 (99043) New Pt Prev Care >65yr (02054) Diagnoses Atherosclerotic cardiovascular disease I25.10 Stented coronary artery Z95.5 Essential hypertension I10 Ascending aorta dilatation I77.810 Heart failure with reduced ejection fraction (HFrEF, <= 40%) I50.20 On pre-exposure prophylaxis for HIV Z79.899 Additional Codes PHQ-9 - 29236 - PHQ-9 Billing: Yes ([id number]) SAMSON-7 Assessment Billing - SAMSON-7 Assessment Tool: SAMSON-7 Assessment 44651 ([id number]) Assessment & Plan Assessment & Plan (1) Atherosclerotic cardiovascular disease: Comment: - Continue aspirin and Clopidogrel therapy. - Follow-up with receiving tank operator required. Code(s): I25.10 - Atherosclerotic heart disease of [place] coronary artery without angina pectoris Category: Medical (2) Stented coronary artery: Comment: in 2009 in [facility] Code(s): Z95.5 - Presence of coronary angioplasty implant and graft Category: Surgical (3) Essential hypertension: Comment: - Continue taking amlodipine and losartan. - Monitor blood pressure regularly. Code(s): I10 - Essential (primary) hypertension Category: Medical (4) Ascending aorta dilatation: Comment: - ECHO from April 2024 demonstrating a dilation of 4.7 cm - Monitor aortic size via ultrasound every 6 to 12 months. - Follow-up with cardiology for evaluation. Code(s): I77.810 - Thoracic aortic ectasia Category: Medical (5) Heart failure with reduced ejection fraction (HFrEF, <= 40%): Comment: - Last EF 40 to 45% per ECHO in April 2024 - No Symptoms - Repeat echocardiography of the heart for assessment & cardiology follow up Code(s): I50.20 - Unspecified systolic (congestive) heart failure Category: Medical (6) On pre-exposure prophylaxis for HIV: Comment: - Continue emtricitabine/tenofovir regimen as prescribed. Code(s): Z79.899 - Other buttermaker helper (current) drug therapy Category: Medical Plan: Health Maintenance: - Order colonoscopy due to a lapse of over five years. - Screen for vitamin D levels, thyroid function, syphilis, lipid panel, HIV, hepatitis, and blood glucose. - Encourage healthy lifestyle choices, including maintaining physical activity. Plan During the visit, I discussed the importance of continuing current antihypertensive and cholesterol medications, emphasizing their role in managing the patient's chronic conditions. The necessity of regular follow-up with cardiology for both the coronary artery disease and aortic dilation was noted, with plans to perform a routine echocardiogram and ultrasound to monitor heart and aortic health. I explained the significance of maintaining the current PrEP regimen for HIV prevention. We also discussed and agreed upon an updated health maintenance plan, focusing on preventative screenings, including a colonoscopy, which the patient acknowledged. No new acute health issues were identified, and the patient was encouraged to maintain his usual level of activity. Orders: Orders Comprehensive Met. Panel Today I10 - Essential (primary) hypertension, I25.10 - Atherosclerotic heart disease of [place] coronary artery without angina pectoris Hemoglobin A1c Today I10 - Essential (primary) hypertension, I25.10 - Atherosclerotic heart disease of [place] coronary artery without angina pectoris HIV Ab/Ag Today I10 - Essential (primary) hypertension, I25.10 - Atherosclerotic heart disease of [place] coronary artery without angina pectoris Vitamin D 25-OH Total Today I10 - Essential (primary) hypertension, I25.10 - Atherosclerotic heart disease of [place] coronary artery without angina pectoris CA echo transthoracic complete Today I50.20 - Unspecified systolic (congestive) heart failure, I77.810 - Thoracic aortic ectasia Complete Blood Count Auto Diff Today I10 - Essential (primary) hypertension, I25.10 - Atherosclerotic heart disease of [place] coronary artery without angina pectoris Hepatitis A,B,C Profile Today I10 - Essential (primary) hypertension, I25.10 - Atherosclerotic heart disease of [place] coronary artery without angina pectoris Lipid Panel Today I10 - Essential (primary) hypertension, I25.10 - Atherosclerotic heart disease of [place] coronary artery without angina pectoris Syphilis Screen Today I10 - Essential (primary) hypertension, I25.10 - Atherosclerotic heart disease of [place] coronary artery without angina pectoris TSH reflex Free T4 Today I10 - Essential (primary) hypertension, I25.10 - Atherosclerotic heart disease of [place] coronary artery without angina pectoris Referrals Open Access Screening Colonoscopy Referral Z12.11 - Encounter for screening for malignant neoplasm of colon Patient Instructions: - Continue taking all medications as prescribed. - Follow up with a receiving tank operator for heart health monitoring. - Schedule and complete a colonoscopy. - Undergo all ordered lab tests for comprehensive health assessment. - Maintain current physical activity levels and monitor weight. - Report any new or concerning symptoms promptly. - Attend scheduled follow-up appointments for ongoing care.
--- OUTSIDE RECORDS SUMMARY | 2025-05-04 07:54 | XMS_ITS | Clinical Summary ---
Author Organization [facility] ity Address [address] [place] [address] Care Team Providers Care Stopper Grinder Name Role Phone Unavailable Primary Care Provider Unavailabl e Social History Tobacco Use Types Packs/Day Years Used Date Smoking Tobacco: Never Assessed Sex and Gender Information Value Date Recorded Sex Assigned at Not on file Legal Sex Male 1:36 PM EDT Gender Identity Not on file Sexual Orientation Not on file Plan of Treatment Health Maintenance Due Date Last Done Comments DTaP,Tdap,and Td Vaccines (1 - Tdap) 1976 Pneumococcal Vaccine: 50+ Ye ars (1 of 1 - PCV) 2007 Zoster Vaccines (1 of 2) 2007 COVID-19 Vaccine (1 - 2023-2 5 season) 2024 Depression Screening 08/24/2024 Influenza Vaccine (#1) 2025 RSV Immunization Adult Patie nts (1 - 1-dose 75+ series) 2032 HIB Vaccines Aged Out No longer eligi ble based on patient's age to complete this topic HPV Vaccines Aged Out No longer eligi ble based on patient's age to complete this topic Hepatitis A Vaccines Aged Out No long er eligible based on patient's age to complete this topic Hepatitis B Vaccines Aged Out No long er eligible based on patient's age to complete this topic IPV Vaccines Aged Out No longer eligi ble based on patient's age to complete this topic MMR Vaccines Aged Out No longer eligi ble based on patient's age to complete this topic Meningococcal ACWY Vaccine Aged Out N o longer eligible based on patient's age to complete this topic Meningococcal B Vaccine Aged Out No l onger eligible based on patient's age to complete this topic RSV Immunization Patients Un dany 20 months Aged Out No longer eligible b ased on patient's age to complete this topic Varicella Vaccines Aged Out No longer eligible based on patient's age to complete this topic
[2025-05-04 08:00] VITALS: BP 122/64; PULSE 71; RESP 17; TEMP 37; O2SAT 97; BMI 21.2
== END 2025-05-04 08:15 | disposition home or self-care (01) ==
LOC: HO.HMCHD 07:51
PROVIDERS: PCP Student in an Organized Health Care Education/Training Program; Visit Provider Student in an Organized Health Care Education/Training Program
DX: Z00.00 Encounter for general adult medical examination without abnormal findings (principal); I11.0 Hypertensive heart disease with heart failure; I50.20 Unspecified systolic (congestive) heart failure; I25.10 Atherosclerotic heart disease of native coronary artery without angina pectoris; Z95.5 Presence of coronary angioplasty implant and graft; I77.810 Thoracic aortic ectasia; Z79.899 Other long term (current) drug therapy

== ENCOUNTER 2025-05-04 08:17 | Outpatient (REF) | payer OTHER, SELFPAY ==
[2025-05-04 10:42] LABS: MANUAL DIFF FLAG NO
[2025-05-04 10:49] LABS: Hematocrit 43.7 % (42.0-52.0); Hemoglobin 15.0 g/dl (14.0-18.0); Imm Gran Abs Auto 0.01 X10*3/uL (0.00-0.03); Imm Gran Pct Auto 0.2 % (0.0-0.4); Lymphocytes Absolute Auto 2.4 X10*3/uL (1.2-4.9); Mean Corpuscular HGB Conc 34.3 g/dl (31.0-36.0); Mean Corpuscular Hemoglobin 31.8 pg (27.0-33.0); Mean Corpuscular Volume 92.6 fL (80.0-98.0); NRBC Abs Auto 0.000 X10*3/uL (0.0-0.012); NRBC Pct Auto 0.0 /100WBC (0.0-0.2); Platelet Count 152 X10*3/uL (160-400); Red Blood Count 4.72 X10*6/uL (4.60-5.80); White Blood Count 5.6 X10*3/uL (4.8-10.8)
[2025-05-04 10:51] LABS: Total Hemoglobin (HGBA1C) 3813.0045 umol/L
[2025-05-04 11:21] LABS: Alanine Aminotransferase 26 U/L (0-40); Albumin Level 4.1 g/dL (3.5-5.0); Alkaline Phosphatase 98 U/L (39-117); Anion Gap 12 (12-20); Aspartate Amino Transferase 45 U/L (5-37); Blood Urea Nitrogen 21 mg/dL (9-16); Calcium 8.8 mg/dL (8.4-10.2); Carbon Dioxide 26 mmol/L (22-29); Chloride 108 mmol/L (96-108); Cholesterol 117 mg/dL (<200); Estimated Glomerular Filt Rate > 60; HDL Cholesterol 50 mg/dL (>40); Potassium 3.8 mmol/L (3.3-5.1); Sodium 142 mmol/L (135-145); Total Protein 7.2 g/dL (6.5-8.0); Triglycerides 52 mg/dL (<150)
[2025-05-04 11:49] LABS: HBS Num1 47.27 mIU/mL (0-7.99); HBc Num1 12.64 S/CO (0.00-0.79); HBsAGNum1 0.50 S/CO (0.00-0.99); HIV Num 1 0.13 S/CO (0.00-0.99); Hepatitis A Antibody IgM 0.21 Index (0-0.79); Hepatitis B Surface Antigen Negative (Negative); Syphilis Screen Nonreactive (Nonreactive); ~HepC Num1 0.14 S/CO (0.00-0.79); ~Hepatitis A Antibody IgM Nonreactive (Nonreactive); ~Hepatitis B Surface Antibody REACTIVE (Nonreactive); ~Hepatitis C Antibody Nonreactive (Nonreactive)
[2025-05-04 13:09] LABS: HBc Num2 13.13 S/CO; HBc Num3 11.97 S/CO
[2025-05-04 13:16] LABS: Free T4 (Free Thyroxine) 1.17 ng/dL (0.71-1.85)
== END 2025-05-04 08:18 | disposition home or self-care (01) ==
LOC: HO.10HDL 08:17
PROVIDERS: Visit Provider Student in an Organized Health Care Education/Training Program
DX: I12.9 Hypertensive chronic kidney disease with stage 1 through stage 4 chronic kidney disease, or unspecified chronic kidney disease (principal); I50.20 Unspecified systolic (congestive) heart failure; I25.10 Atherosclerotic heart disease of native coronary artery without angina pectoris; I77.810 Thoracic aortic ectasia; Z79.82 Long term (current) use of aspirin; Z79.899 Other long term (current) drug therapy; Z95.5 Presence of coronary angioplasty implant and graft
CPT/HCPCS: 36415; 80053; 80061; 82306; 83036; 84439; 84443; 85025; 86704; 86706; 86709; 86780; 86803; 87340; 87389; 96127

== ENCOUNTER → 2025-05-17 08:54 | Outpatient (REF) | payer OTHER, SELFPAY ==
--- NOTE | 2025-05-17 08:56 | CA_ITS ---
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 Plsu-oh-[id number] LV systolic dysfunction with LVEF of 40-45% with grade 1 diastolic dysfunction 2. [id number]-[id number] aortic regurgitation 3. Moderately dilated ascending aorta at 4.8 cm 4. Normal RV systolic pressure 5. No gross pericardial effusion Findings Left Ventricle Normal left ventricular cavity size. There is normal left ventricular wall thickness. The left ventricular systolic function is mild to moderately decreased. The visually estimated ejection fraction is between 40-45%. There is evidence of regional wall motion abnormalities. Spectral Doppler is indicative of an impaired relaxation filling pattern. Evidence suggests grade I (mild) diastolic dysfunction. Right Ventricle Normal right ventricular cavity size and systolic function. Atria The left atrium is likely dilated. There is no evidence of interatrial shunt. The right atrium is normal in size. Aortic Valve There is mild thickening of the aortic valve. There is no aortic valve stenosis. There is mild to moderate aortic valve regurgitation. Mitral Valve Normal mitral valve structure and function. There is trace mitral valve regurgitation. There is no mitral valve stenosis. Pulmonic Valve The pulmonic valve is likely normal. There is trace to mild pulmonic valve regurgitation. Tricuspid Valve Normal tricuspid valve structure. There is trace tricuspid valve regurgitation. The right ventricular systolic pressure is normal. The right ventricular systolic pressure is 17 mmHg. Normal right atrial pressure. There is no evidence of pulmonary hypertension. Great Vessels The pulmonary artery was not well visualized. There is moderate dilatation of the ascending aorta measuring 4.80 cm. Venous The inferior vena cava is normal in size and collapses greater than 50% with inspiration. Pericardium/Pleural There is no evidence of pericardial effusion. Prior Study Comparison No significant change compared to prior study dated: 05/18/2024. Measurements 2D Linear Measurements IVSd: 1.00 0.6-0.9/0.6-1.0 cm LVIDd: 4.97 3.9-5.3/4.2-5.9 cm LVIDd Index: 2.72 2.4-3.2/2.2-3.1 cm/m2 LVIDs: 3.35 2.0-3.6 cm LVPWd: 1.03 0.7-1.1 cm LA Diam: 3.50 2.7-3.8/3.0-4.0 cm LAIDs Index: 1.91 1.5-2.3 cm/m2 LV Mass: 229.05 67-162/88-224 g LV Mass Index: 125.16 43-95/49-115 g/m2 LVOT Diam: 2.10 3.0+(-)1.3 cm 2D Systolic Function EF 4C: 44.60 >55% EF 2C: 44.50 >55% EF BiP: 44.90 >55% Mitral Valve MV VTI: 0.33 MV Pk Wero: 0.82 MV Mn Wero: 0.52 MV Pk Grad: 3.00 MV Mn Grad: 1.00 MV Pk E: 0.65 MV PK A: 0.72 MV Decel Time: 235.00 E/A: 0.90 E'Lateral: 7.29 E'Medial: 3.81 E/E' Med: 17.00 E/E' Lat: 8.90 PHT: 69.00 MVA PHT: 3.19 MVA Continuity: 2.47 Decel Dickinson: 2.77 Aortic Valve AoV Pk Wero: 1.72 AoV Mn Wero: 1.30 AoV VTI: 0.41 AoV Pk Grad: 12.00 Aov Mn Grad: 7.00 CON Cont.VTI: 2.02 AI Pk Wero: 4.61 AI Dickinson: 2.65 LVOT LVOT Pk Wero: 1.09 LVOT Mn Wero: 0.71 LVOT VTI: 0.24 LVOT Pk Grad: 5.00 LVOT Mn Grad: 2.00 LVOT Diam: 2.10 LVOT Area: 3.46 Diastolic Function MV Pk E: 0.65 MV Pk A: 0.72 E/A: 0.90 E'Medial: 3.81 E/E' Med: 17.00 E' Laterial: 7.29 E/E' Lat: 8.90 Right Ventricle TAPSE (mm): 18.40 TVS' Wero: 11.10 Tricuspid Valve TR Pk Wero: 1.88 TR Pk Grad: 14.00 RA Press: 3.00 RVSP: 17.00 Great Vessels Aorta Sinus of Valsalva: 4.10 2.0-3.5 cm Ao Asc: 4.80 2.1-3.4 cm Pulmonary Veins Pulm Vein S/D 1.10 Pulmonary Valve PV Pk Wero: 0.92 Peak PV Grad: 3.00 Updated in Other Vendor System with Status of Final Harman Cole MD electronically signed on 05/17/2025 12:28:44 PM with status of Final
--- OUTSIDE RECORDS SUMMARY | 2025-05-17 10:27 | XMS_ITS | Clinical Summary ---
Author Organization [facility] ity Address [address] [place] [address] Care Team Providers Care Battery Hand Name Role Phone Unavailable Primary Care Provider [...] 2007 Zoster Vaccines (1 of 2) 2007 Depression Screening 08/24/2024 COVID-19 Vaccine (1 - 2023-2 5 season) 2025 Influenza Vaccine (#1) 2025 RSV Immunization Adult [...]
== END ==
LOC: HO.CARD 08:54
PROVIDERS: PCP Student in an Organized Health Care Education/Training Program; Visit Provider Student in an Organized Health Care Education/Training Program
DX: I77.810 Thoracic aortic ectasia (principal); I50.20 Unspecified systolic (congestive) heart failure
CPT/HCPCS: 93306

== ENCOUNTER → 2025-05-17 08:56 | Outpatient (BNV) | payer OTHER, SELFPAY | PROVIDERS: PCP Student in an Organized Health Care Education/Training Program; Visit Provider Internal Medicine Cardiovascular Disease | DX: I35.1 Nonrheumatic aortic (valve) insufficiency (principal); I50.20 Unspecified systolic (congestive) heart failure; I77.810 Thoracic aortic ectasia | CPT/HCPCS: 93306 ==

== ENCOUNTER 2025-05-23 12:38 | Outpatient (AMB) | payer OTHER, SELFPAY ==
[2025-05-23 12:50] VITALS: BP 128/68; PULSE 68; BMI 20.9
--- NOTE | 2025-05-23 12:50 | MHC.OFFVIS ---
Vital Signs 05/23/25 12:50 Height 5 ft 10 in Weight 145 lb 8.081 oz BMI 20.9 BP 128/68 Blood Pressure Location Lt brachial Position Sitting Pulse 68 Pulse Source Monitor Intake Visit Reasons: 1 year f/up echo Allergies No Known Allergies Allergy (Verified 05/04/25 07:55) Medication List - Last Reconciled 05/23/25 by Ashish Montero MD amlodipine 5 mg (1/2 x 10 mg) PO DAILY aspirin 81 mg PO DAILY cholecalciferol (vitamin D3) 1,250 mcg PO QWEEK 12 weeks clopidogrel 75 mg PO DAILY emtricitabine-tenofovir (TDF) 200-300 mg 1 tab PO DAILY losartan 25 mg (1/2 x 50 mg) PO DAILY rosuvastatin 20 mg PO DAILY HPI Comments Details: Jeovany returns for follow-up. To recall, while living in [place] many years ago he underwent PCI for acute myocardial infarction. Then moved to [place] and then to [place]. Overall, he is extremely active. 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 Still active with no limitations whatsoever. On meds for hypertension and dyslipidemia. Since last seen, he states he feels generally fine. We had ordered a stress test last year but that was not pursued as he states he was traveling a lot but has now settled back. No clear-cut angina. [facility], [facility] Medical History (Updated 05/23/25 @ 16:08 by Ashish Montero MD) On pre-exposure prophylaxis for HIV Heart failure with reduced ejection fraction (HFrEF, <= 40%) Myocardial infarction Atherosclerotic cardiovascular disease Surgical History (Updated 05/04/25 @ 08:14 by Terrence Murray MD) Stented coronary artery Family History Father No problems noted. Mother No problems noted. Social History Housing: House Alcohol intake: never Patient Tobacco Use Status: Former Tobacco user Tobacco use type: Cigarette e-Cigarette/Vaping Use: Never Used service: No Current occupational status: retired Review of Systems Const Denies weakness ENT Denies dizziness Card Denies chest pain, Denies chest pain with activity, Denies syncope, Denies rapid heart rate, Denies pedal edema, Denies edema, Denies leg edema, Denies lightheadedness, Denies palpitations, Reports dyspnea, Reports dyspnea on exertion and Denies orthopnea Resp Denies cough, Reports dyspnea and Reports dyspnea on exertion GI Denies hematochezia and Denies change in stool character Musc Denies abnormal gait, Denies muscle cramps, Denies muscle weakness, Denies numbness, Denies radiating pain into limb and Denies tingling Neuro Denies abnormal gait, Denies dizziness, Denies syncope, Denies numbness, Denies tingling and Denies weakness Endo Denies palpitations Physical Exam Vital Signs: Last Vital Signs Pulse 05/23/25 12:50 BP 128/68 05/23/25 12:50 BMI result Body Mass Index 20.9 Const General: comfortable and no acute distress Orientation/consciousness: patient oriented x3 HEENT Other: Unremarkable Head: Yes normal to inspection Neck Neck: Yes normal visual inspection Chest Chest palpation & inspection: normal inspection of the chest Resp Auscultation: clear to auscultation bilaterally Cardio Palpation: normal PMI Heart sounds: S1 normal heart sound present, S2 normal heart sound present, no gallops, no murmurs and no rubs GI Palpation (GI): Soft to palpation Back/Spine/Pelvis Other: unremarkable Skin General skin exam: no rashes or lesions noted Neuro General: patient oriented x3 Extrem General: Yes normal to inspection Psych Mental Status: mental status grossly normal Office Procedures EKG Details: EKG with underlying sinus rhythm at 68/Min; occasional PACs/PVCs; left ventricular hypertrophy with strain pattern; [place] [id number]-[id number], Complete Assessment & Plan Assessment & Plan (1) Atherosclerotic cardiovascular disease: Code(s): I25.10 - Atherosclerotic heart disease of [place] coronary artery without angina pectoris Category: Medical (2) Essential hypertension: Code(s): I10 - Essential (primary) hypertension Category: Medical (3) Ascending aorta dilatation: Code(s): I77.810 - Thoracic aortic ectasia Category: Medical (4) Atrial arrhythmia: Code(s): I49.8 - Other specified cardiac arrhythmias Category: Medical Plan Cardiac data reviewed. Cardiac catheterization -2009. s/p PCI to circumflex; right coronary artery; 1st diagonal branch. Widely patent left main. At that time, ventriculogram had akinesis of the proximal inferior wall. Overall, seems to be completely revascularized. Exercise stress echocardiogram from 2016 in [place]- unremarkable resting study; after exercise, slight hypokinesis in the basal lateral wall. Myocardial perfusion imaging 2021- mixed ischemia/infarct pattern in the basal inferior/inferolateral/lateral wall. Echocardiogram 2023-LVEF 40-45%; inferior wall motion abnormality similar to prior; [id number] aortic regurgitation with moderate ascending aortic dilatation at 4.7 cm. Chest CTA 2022-ascending aortic aneurysm, 4.5 cm. [id number] is 40-45%; cgkj-fm-qkyrrbnb aortic regurgitation. Ascending aortic size 4.8 cm. Holter 2023 shows underlying sinus rhythm with frequent supraventricular ectopy and a burden of 19%. With regard to his premature CAD, he has been generally stable. We will repeat his stress test as planned last year. Due to aortic aneurysm, we can try to do rather pharmacological stress test and avoid exerting. With regard to the aortic aneurysm itself, is slight change from last value but not clear if it is just technical either versus true increase in size. We will recheck that in about 6 months' time. Blood pressure is stable on the current regimen. Otherwise, continue dual antiplatelet therapy as before. Continue statins. Orders: Orders CA lexiscan stress w tana Today I20.9 - Angina pectoris, unspecified, I25.10 - Atherosclerotic heart disease of [place] coronary artery without angina pectoris NM cardiolite stress test Today I25.10 - Atherosclerotic heart disease of [place] coronary artery without angina pectoris, R07.2 - Precordial pain CA echo transthoracic complete 6 Months I25.10 - Atherosclerotic heart disease of [place] coronary artery without angina pectoris, I77.810 - Thoracic aortic ectasia Coding Level of Care Code Est Pt Level 4 (20572) Complex EM visit Add On G2211 Diagnoses Atherosclerotic cardiovascular disease I25.10 Essential hypertension I10 Ascending aorta dilatation I77.810 Atrial arrhythmia I49.8 CPT Codes EKG - CPT: 30412-[id number], Complete ([id number])
--- OUTSIDE RECORDS SUMMARY | 2025-05-23 13:48 | XMS_ITS | Clinical Summary ---
Author Organization [facility] ity Address [address] [place] [address] Care Team Providers Care Staff Submarine Warfare Officer Name Role Phone Unavailable Primary Care Provider [...]
== END 2025-05-23 13:10 | disposition home or self-care (01) ==
LOC: HO.HCS 12:39
PROVIDERS: PCP Student in an Organized Health Care Education/Training Program; Visit Provider Internal Medicine
DX: I25.10 Atherosclerotic heart disease of native coronary artery without angina pectoris (principal); I10 Essential (primary) hypertension; I77.810 Thoracic aortic ectasia; I49.8 Other specified cardiac arrhythmias
CPT/HCPCS: 93010; 99214

== ENCOUNTER → 2025-05-23 12:38 | Outpatient (BNVA) | payer OTHER, SELFPAY | PROVIDERS: PCP Student in an Organized Health Care Education/Training Program; Visit Provider Internal Medicine | DX: I25.10 Atherosclerotic heart disease of native coronary artery without angina pectoris (principal) | CPT/HCPCS: 93005 ==

== ENCOUNTER → 2025-06-22 08:16 | Outpatient (REF) | payer MEDICARE, SELFPAY ==
--- NOTE | ~2025-06-22 | NM_ITS ---
Lexiscan Myocardial perfusion study Indication: Coronary artery disease Technique: The patient was brought in for a Lexiscan perfusion study on 06/22/2025 and was injected 0.4 mg of Lexiscan intravenously. Within a minute of this injection 25 mCi of sestamibi was given intravenously. Images were obtained using the SPECT gamma camera interlaced with the gating device. Images were obtained in supine position. Resting perfusion study was performed on 06/23/2025. Patient was administered 25 mCi of sestamibi intravenously at rest. Images were then obtained in supine position. Total DLP 89 mGy-cm. Images were processed with the software and compared side to side in short axis, horizontal long axis and vertical long axis views. Findings: Raw aquisition reviewed. The stress perfusion study showed decreased tracer uptake in the inferolateral wall. Some improvement with CT attenuation correction could suggest components of diaphragmatic attenuation artifact. The gated study shows low normal LV systolic function with calculated LVEF of 54%. LV cavity is mildly dilated in size. The gated study shows reduced wall thickening and contractility in the inferolateral wall and basal inferior wall. Resting study shows improved tracer uptake in the inferolateral wall. Gating at rest reveals reduced thickening in the inferolateral wall; basal inferior wall and ejection fraction of 42% The findings are consistent with fixed perfusion defect involving mostly inferolateral wall; basal inferior wall. NM/ID cardiolite stress test Impression: 1. Myocardial perfusion imaging study shows mixed ischemia/infarct pattern involving inferolateral wall; basal inferior wall. 2. Gated LVEF is 54% during stress and 42% during rest. Correlate with echocardiogram. 3. Transient ischemic dilatation not present. EKG component of the test reported separately. Electronically signed by: Ashish Montero MD 06/25/2025 01:16 PM [facility]INA
--- NOTE | 2025-06-22 08:19 | CA_ITS ---
Acquisition Time: 2025-06-22 09:02:53 Total Exercise Time: 00:02:00 Test Indications: CAD,Abnormal ECG Medications: AMLODIPINE ASA CLOPIDOGREL LOSARTAN ROSUVASTATIN Protocol: LEXISCAN Max HR: 115 BPM 75% of Pred: 153 BPM Max BP: 152/78 mmHG Max Work Load: 1.0 METS Pharmacological stress test with Lexiscan while pt marches in his chair, with reports of SOB and headrush, with isolated PVC, with normotensive response to injection. Nondiagnostic EKG for ischemia. In recovery, pt treated with IVP Aminophylline 75 mg to reverse Lxiscan after which pt slwoly feeling back to baseline. Nuclear images pending. Test reviewed with Dr. Montero. Referred By: Ashish Montero Electronically Signed By: Chaz Ruth
--- OUTSIDE RECORDS SUMMARY | 2025-06-22 08:50 | XMS_ITS | Clinical Summary ---
Author Organization [facility] ity Address [address] [place] [address] Care Team Providers Care Molder Name Role Phone Unavailable Primary Care Provider [...]
== END ==
LOC: HO.CARD 08:16
PROVIDERS: PCP Student in an Organized Health Care Education/Training Program; Visit Provider Internal Medicine
DX: I25.119 Atherosclerotic heart disease of native coronary artery with unspecified angina pectoris (principal); R07.2 Precordial pain; Z79.02 Long term (current) use of antithrombotics/antiplatelets; Z79.899 Other long term (current) drug therapy
CPT/HCPCS: 78452; 93017; A9500; J0280; J2785

== ENCOUNTER → 2025-06-22 08:19 | Outpatient (BNV) | payer MEDICARE, SELFPAY | PROVIDERS: PCP Student in an Organized Health Care Education/Training Program | DX: I25.10 Atherosclerotic heart disease of native coronary artery without angina pectoris (principal) | CPT/HCPCS: 78452; 93016; 93018 ==

== ENCOUNTER 2025-08-10 14:21 | Outpatient (AMB) | payer MEDICARE, SELFPAY ==
[2025-08-10 14:32] VITALS: BP 126/70; PULSE 72; TEMP 36.4; O2SAT 98; BMI 21.8
--- NOTE | 2025-08-10 14:32 | A.OFFPC_ITS ---
Vital Signs 08/10/25 14:32 Height 5 ft 10 in Weight 152 lb BMI 21.8 BP 126/70 Blood Pressure Location Rt brachial Position Sitting Pulse 72 Pulse Source Pulse Oximeter Temp 97.6 F Temp Source Temporal Artery Scan Pulse Oximetry (%) 98 Oxygen Delivery Method Room Air Intake Visit Reasons: Leg Swelling with Redness Timber Grader Required: No Accompanied by: Self / Same As Patient Allergies No Known Allergies Allergy (Verified 08/10/25 14:33) Medication List - Last Reconciled 08/10/25 by Terrence Murray MD amlodipine 5 mg (1/2 x 10 mg) PO DAILY apixaban (Eliquis DVT-PE Treat 30D Start) PO PER PKG DIR aspirin 81 mg PO DAILY clopidogrel 75 mg PO DAILY doxycycline hyclate 100 mg PO BID 10 days emtricitabine-tenofovir (TDF) 200-300 mg 1 tab PO DAILY losartan 25 mg (1/2 x 50 mg) PO DAILY rosuvastatin 20 mg PO DAILY Tobacco use date assessed: 08/10/25 Fall risk assessment: No Falls in past year Last assessed Fall Risk: 08/10/25 Dental Screening Dental Screen Date: 08/10/25 Did you have a dental visit in the last 12 months?: Yes Did you have a dental problem in the last 6 months where you did not have access to dental care?: No HPI HPI Comments History of Present Illness Details History of Present Illness The patient is a 69 year old male presenting with right leg swelling. He reports that after returning from a trip to [place], he experienced chills on the first night. The following morning, he noticed his right leg was swollen. He describes the leg as heated but denies pain, except for when he stands up after having it elevated. He notes a history of prolonged sitting with his legs crossed during his recent travel. He denies any known cuts, trauma, or falls. His past medical history is significant for coronary artery disease, for which a stent was placed in 2009. He also has a history of hypertension and hyperlipidemia. He denies any personal history of prior blood clots or cancer. Medical History: - Coronary artery disease, status post s tent in 2009 - Hypertension - Hyperlipidemia - Denies history of cancer - Denies history of blood clots Surgical History: - Coronary artery stent placement in 201 0 - Denies recent surgery Medications: - Losartan 50 mg for hypertension - Unspecified medication 25 mg once a da y for hypertension - Rosuvastatin 20 mg for hyperlipidemia - Clopidogrel (Plavix) 75 mg for coronar y artery disease/stent - Amlodipine 5 mg for hypertension - Aspirin (currently holding) Diagnostic Results: - Wells score for DVT is 2-3 points, ind icating moderate risk. Social History - Travel: Patient reports frequent trave l to [place]. [facility] Medical History (Updated 08/10/25 @ 15:07 by Terrence Murray MD) Right leg swelling On pre-exposure prophylaxis for HIV Heart failure with reduced ejection fraction (HFrEF, <= 40%) Myocardial infarction Atherosclerotic cardiovascular disease Surgical History (Updated 08/10/25 @ 15:07 by Terrence Murray MD) Stented coronary artery Family History (Updated 08/10/25 @ 14:42 by Alyssa Rodríguez MA) Father No problems noted. Mother No problems noted. Social History Housing: House Alcohol intake: never Patient Tobacco Use Status: Former Tobacco user Tobacco use type: Cigarette e-Cigarette/Vaping Use: Never Used service: No Current occupational status: retired Cognitive needs: No Hearing needs: No Vision needs: Yes (RX GLASSES) Questionnaire Thrive Questionnaire Date Thrive assessed: 05/04/25 SAMSON-7 AMB Questionnaire SAMSON-7 Date SAMSON - 7 assessed: 05/04/25 Source: Developed by Drs. Jaleel Patel, Maria C Pulido, Yuan Nielsen and colleagues, with an educational ulisses from [email or web address]. Review of Systems Narrative Review of Systems - Constitutional: Reports a single episode of chills. - Integumentary: Reports heat in the right leg. - Musculoskeletal: Reports right leg swelling and pain only when standing after elevation. - Gastrointestinal: Denies nausea or vomiting. - Neurological: Denies headaches or vision changes. - Cardiovascular: Denies chest pain. - Respiratory: Denies shortness of breath. All systems reviewed & are unremarkable except as reviewed in HPI and above Physical exam (Primary Care) Vital Signs: Last Vital Signs Temp 97.6 F 08/10/25 14:32 Pulse 72 08/10/25 14:32 BP 126/70 08/10/25 14:32 Pulse Ox 98 08/10/25 14:32 Oxygen Delivery Method Room Air 12/18/25 14:32 Care Plan Goal for BP management: Pressures in goal BMI result Body Mass Index 21.8 Tobacco/Smoking Status: Tobacco use Status Tobacco use date assessed 08/10/25 08/10/25 14:33 Patient Tobacco Use Status Former Tobacco user 08/10/25 14:32 Tobacco use type Cigarette 08/10/25 14:32 e-Cigarette/Vaping Use Never Used 08/10/25 14:32 Thrive Assessment: Date of Thrive Assessment Date Thrive assessed 05/04/25 08/10/25 14:32 Narrative Physical Exam General: +Alert and oriented, Well nourished, No acute distress. Eye: Pupils are equal, round and reactive to light, Intact accommodation, Extraocular movements are intact, Normal conjunctiva, Vision unchanged. HENT: Normocephalic, Atraumatic, Tympanic membranes are clear, Normal hearing, Oral mucosa is moist, No pharyngeal erythema, Ear canals patent. Respiratory: Lungs CTA bilaterally, No wheeze, Respirations are non-labored. Cardiovascular: Regular rate, Regular rhythm, S1 auscultated, S2 auscultated, No murmur, Good pulses equal in all extremities, Normal peripheral perfusion, No edema. Gastrointestinal: Soft, Non-tender, Non-distended, Normal bowel sounds, No organomegaly. Musculoskeletal: Normal range of motion, Normal strength, No tenderness, Swelling in the right leg, No deformity, Normal gait. Integumentary: Warm, Dry, Duck, Intact, Swelling and heated area on the right leg. Neurologic: Alert, Oriented, Normal sensory, Normal motor function, No focal defects, Cranial Nerves II-XII are grossly intact, Normal deep tendon reflexes. Psychiatric: Cooperative, Appropriate mood & affect, Normal judgment. Coding Level of Care Code Est Pt Level 4 (45845) Add On Problem Visit Only Diagnoses Right leg swelling M79.89 Heart failure with reduced ejection fraction (HFrEF, <= 40%) I50.20 Essential hypertension I10 On pre-exposure prophylaxis for HIV Z79.899 Stented coronary artery Z95.5 Assessment & Plan Assessment & Plan (1) Right leg swelling: Comment: - The primary differential diagnoses are cellulitis and deep vein thrombosis (DVT), especially given the patient's recent travel. - Cellulitis is strongly suspected due to the leg's appearance. - The Wells score for DVT is 3, indicating a moderate risk. - Plan includes starting Doxycycline 100 mg twice daily for 10 days for presumed cellulitis. - An urgent ultrasound of the right leg will be ordered to rule out DVT. - For safety, the patient will start empirical treatment with Eliquis 10 mg twice daily for seven days, followed by 5 mg twice daily, pending the ultrasound results. - The patient was instructed to hold his aspirin while taking Eliquis to reduce bleeding risk. - He was advised to go to the emergency room if he develops shortness of breath. Code(s): M79.89 - Other specified soft tissue disorders Category: Medical (2) Heart failure with reduced ejection fraction (HFrEF, <= 40%): Comment: - Last EF 40 to 45% per ECHO in April 2024 - No Symptoms - Repeat echocardiography of the heart for assessment & cardiology follow up Code(s): I50.20 - Unspecified systolic (congestive) heart failure Category: Medical (3) Essential hypertension: Comment: - Pressures well controlled on amlodipine 5mg Daily & Losratn 25mg Daily Code(s): I10 - Essential (primary) hypertension Category: Medical (4) On pre-exposure prophylaxis for HIV: Comment: - Continue emtricitabine/tenofovir regimen as prescribed. Code(s): Z79.899 - Other terminal press operator (current) drug therapy Category: Medical (5) Stented coronary artery: Comment: - 2010 in [facility] - The patient's history of CAD is stable, status post-stent placement in 2009. - He will continue taking clopidogrel (Plavix) 75 mg daily but has been instructed to temporarily hold his aspirin to mitigate bleeding risk while on Eliquis. 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 Code(s): Z95.5 - Presence of coronary angioplasty implant and graft Category: Surgical Plan: Health Maintenance: - Cardiology Follow-up: Patient has a scheduled echocardiogram on November 10 and a follow-up appointment with his concrete mixing plant laborer on November 22. - Medication Safety: Discussed increased bleeding risk with concurrent use of Plavix and Eliquis, and the importance of holding aspirin to mitigate this risk. Patient was informed and verbally consented to the use of an ambient scribe for clinic note documentation during this visit. Plan I discussed with the patient that his right leg swelling is concerning for two main issues: a skin infection (cellulitis) and a blood clot (deep vein thrombosis or DVT). I explained that his recent travel increases his risk for a DVT, and his calculated Wells score of 2-3 places him at a moderate risk. To add ress both possibilities safely, I recommended starting an antibiotic, doxycycline, for the suspected cellulitis. Additionally, I explained the importance of starting a blood thinner, Eliquis, immediately while we wait for an urgent ultrasound of his leg to definitively rule out a DVT. I clarified that his current Plavix is an antiplatelet and different from the anticoagulant needed for a DVT. We discussed the increased risk of bleeding from taking both Plavix and Eliquis, and I instructed him to hold his aspirin to reduce this risk. I provided strict return precautions, advising him to go to the emergency room immediately for any shortness of breath, as this could indicate a serious complication like a pulmonary embolism. Orders: Orders US venous duplex LE RT Today M79.89 - Other specified soft tissue disorders Medications: New doxycycline hyclate 100 mg PO BID 20 caps 0RF 10 days apixaban (Eliquis DVT-PE Treat 30D Start) PO PER PKG DIR 74 ea 0RF I82.409 - Acute embolism and thrombosis of unspecified deep veins of unspecified lower extremity Patient Instructions: - Start taking Doxycycline 100 mg twice a day for 10 days for a possible skin infection in your leg. Your prescription was sent to [facility]. - Start taking the blood thinner Eliquis as prescribed to treat a possible blood clot. Take 10 mg twice a day for the first 7 days, then 5 mg twice a day. - Stop taking your daily aspirin while you are on Eliquis. - Be very careful and avoid activities that could cause injury, as you have an increased risk of bleeding while on Plavix and Eliquis. - We have ordered an urgent ultrasound (scan) of your leg. The imaging center will call you to schedule this. - Go to the emergency room immediately if you start to feel short of breath or have chest pain. - We will see you at your next scheduled follow-up appointment on November 16.
--- OUTSIDE RECORDS SUMMARY | 2025-08-10 18:33 | XMS_ITS | Clinical Summary ---
Author Organization [facility] ity Address [address] [place] [address] Care Team Providers Care Decision Support Manager Name Role Phone Unavailable Primary Care Provider [...] Depression Screening 08/24/2024 COVID-19 Vaccine (1 - 2024-2 6 season) 2025 Influenza Vaccine (#1) 2025 RSV [...]
== END 2025-08-10 14:55 | disposition home or self-care (01) ==
LOC: HO.HMCHD 14:21
PROVIDERS: PCP Student in an Organized Health Care Education/Training Program; Visit Provider Student in an Organized Health Care Education/Training Program
DX: M79.89 Other specified soft tissue disorders (principal); I50.20 Unspecified systolic (congestive) heart failure; I10 Essential (primary) hypertension; Z79.899 Other long term (current) drug therapy; Z95.5 Presence of coronary angioplasty implant and graft

== ENCOUNTER → 2025-08-10 14:21 | Outpatient (BNVA) | payer MEDICARE, SELFPAY | PROVIDERS: PCP Student in an Organized Health Care Education/Training Program; Visit Provider Student in an Organized Health Care Education/Training Program | DX: I10 Essential (primary) hypertension (principal); I50.20 Unspecified systolic (congestive) heart failure; M79.89 Other specified soft tissue disorders; Z95.5 Presence of coronary angioplasty implant and graft; Z79.899 Other long term (current) drug therapy | CPT/HCPCS: 99212 ==

== ENCOUNTER 2025-08-11 12:16 | Outpatient (REF) | payer MEDICARE, SELFPAY ==
--- NOTE | ~2025-08-11 | US_ITS ---
EXAMINATION: US TRIPLEX LOWER EXTREMITY, RIGHT CLINICAL INFORMATION: Right leg pain and edema. COMPARISON: 03/11/2024. TECHNIQUE: Color-flow triplex imaging with spectral analysis and compression Doppler were performed on the right lower extremity. FINDINGS: Respiratory variation, normal compression and augmented flow are noted throughout the right lower extremity. The visualized common femoral vein, superficial femoral vein, profunda femoral vein, popliteal vein and midcalf peroneal and posterior tibial venous segments show no evidence of deep venous thrombosis. There is no Pantoja's cyst. Reactive appearing lymph node in the right groin. US/US venous duplex LE RT IMPRESSION: No evidence of deep venous thrombosis involving the right lower extremity. Electronically signed by: Wilber Egan MD 08/11/2025 12:49 PM [facility]INA
--- OUTSIDE RECORDS SUMMARY | 2025-08-11 14:16 | XMS_ITS | Clinical Summary ---
Author Organization [facility] ity Address [address] [place] [address] Care Team Providers Care Still Operator Gin Name Role Phone Unavailable Primary Care Provider [...]
== END 2025-08-11 12:17 | disposition home or self-care (01) ==
LOC: HO.US 12:16
PROVIDERS: PCP Student in an Organized Health Care Education/Training Program; Visit Provider Student in an Organized Health Care Education/Training Program
DX: M79.89 Other specified soft tissue disorders (principal)
CPT/HCPCS: 93971

== ENCOUNTER → 2025-08-11 12:19 | Outpatient (BNV) | payer MEDICARE, SELFPAY | PROVIDERS: PCP Student in an Organized Health Care Education/Training Program; Visit Provider Radiology Diagnostic Radiology | DX: M79.89 Other specified soft tissue disorders (principal) | CPT/HCPCS: 93971 ==